=== PATIENT | male | born 1975 | race American Indian/Alaskan Native ===

== ENCOUNTER 2018-05-07 10:22 | Inpatient (IN) | payer OTHER ==
--- NOTE | 2018-05-07 11:03 | C.PDOC ---
History Of Present Illness 43yo male, history of asthma, comes to ER for evaluation of pain and swelling to his left foot. Patient states initially the foot (web space between 3rd and 4th toe) was itchy and after scratching the area, he developed a wound to the site. He now states the pain is worse with walking. Patient was seen by Dr. Hobbs and was informed to come to ER for further evaluation. PMD: None Time Seen by Provider: 05/07/18 10:27 Chief Complaint (Nursing): Lower Extremity Problem/Injury History Per: Patient History/Exam Limitations: no limitations Onset/Duration Of Symptoms: Days (5) Current Symptoms Are (Timing): Still Present Additional History Per: Patient - Knee Description Of Injury: Laceration Past Medical History Reviewed: Historical Data, Nursing Documentation, Vital Signs Vital Signs: Last Vital Signs Temp 99.3 F 05/07/18 10:25 Pulse 81 05/07/18 10:25 Resp 18 05/07/18 10:25 BP 130/81 05/07/18 10:25 Pulse Ox 100 05/07/18 10:25 - Medical History PMH: No Chronic Diseases Surgical History: No Surg Hx Family History: States: No Known Family Hx - Social History Hx Alcohol Use: Yes Hx Substance Use: No - Immunization History Hx Tetanus Toxoid Vaccination: No Hx Influenza Vaccination: No Hx Pneumococcal Vaccination: No Review Of Systems Except As Marked, All Systems Reviewed And Found Negative. Constitutional: Negative for: Fever, Chills Musculoskeletal: Positive for: Foot Pain (left foot pain and swelling; wound to web space between left 3rd and 4th toe.) Physical Exam - Physical Exam Appears: Well, Non-toxic, No Acute Distress Skin: Normal Color, Warm, Dry, No Rash, Other (Left foot small open tender ulcer between 3rd/4th toes with mild yellow oozing, mild surround erythema, edema. NO flactulance.) Head: Normacephalic Eye(s): bilateral: PERRL Nose: No Flaring, No Discharge Oral Mucosa: Moist Throat: No Erythema, No Drooling Neck: Trachea Midline, Supple Cardiovascular: Rhythm Regular Respiratory: No Decreased Breath Sounds, No Accessory Muscle Use, No Stridor, No Wheezing Gastrointestinal/Abdominal: Soft, No Tenderness, No Distention, No Guarding Back: No CVA Tenderness Extremity: Normal ROM, No Deformity, No Swelling Neurological/Psych: Oriented x3, Normal Speech ED Course And Treatment - Laboratory Results Result Diagrams: 05/07/18 11:37 05/07/18 11:37 Lab Interpretation: No Acute Changes O2 Sat by Pulse Oximetry: 100 (RA) Pulse Ox Interpretation: Normal - CT Scan/US Left foot Other Rad Studies (CT/US): Radiology Report Reviewed CT/US Interpretation: (-) acute fx/osteo Progress Note: Podiatry resident paged. Labs and urinalysis ordered. Pt was OBS in ED for 3 hours and reamined stable. Pt was seen by Podiatry resident who discussed cased case with and admission recommend to hospitalist service with scheduled tomorrow OR for I&D. On re-eval, pt is afebrile, hemodynamicaly stable. Non-toxic. left foot: (+) small open wound with mild localized edema, erythema. FAROM, no neurovsacular deficits. Clinc given per podiatry request. Pt agrees with plan. Disposition Counseled Patient/Family Regarding: Studies Performed, Diagnosis, Need For Followup - Disposition Disposition: HOME/ ROUTINE Disposition Time: 13:16 Condition: STABLE Forms: [employer] ([place]ian) - Clinical Impression Clinical Impression: Cellulitis of left foot, Non-healing ulcer of foot - PA / [employer] / Resident Statement MD/DO has reviewed & agrees with the documentation as recorded. - Scribe Statement The provider has reviewed the documentation as recorded by the Bozena Colon Provider Attestation: All medical record entries made by the Radhaibsukhdev were at my direction and personally dictated by me. I have reviewed the chart and agree that the record accurately reflects my personal performance of the history, physical exam, medical decision making, and the department course for this patient. I have also personally directed, reviewed, and agree with the discharge instructions and disposition.
[2018-05-07 11:41] LABS: BASO # 0.1 K/uL (0.0-0.2); EOS # 0.1 K/uL (0.0-0.7); EOS % 2.4 % (0.0-4.0); HEMOGLOBIN 16.7 g/dL (12.0-18.0); LYMPH # 1.5 K/uL (1.0-4.3); LYMPH % 25.5 % (20.0-40.0); MEAN CELL VOLUME 93.5 fL (80.0-94.0); MEAN CORPUSCULAR HEMOGLOBIN 32.6 pg (27.0-31.0); MEAN CORPUSCULAR HGB CONC 34.9 g/dL (33.0-37.0); MEAN PLATELET VOLUME 8.3 fL (7.2-11.7); MONO # 0.6 K/uL (0.0-0.8); MONO % 10.3 % (0.0-10.0); NEUT # 3.6 K/uL (1.8-7.0); NEUT % 60.8 % (50.0-75.0); NRBC % 0.1 % (0.0-2.0); RBC 5.11 Mil/uL (4.40-5.90); WHITE BLOOD COUNT 5.9 K/uL (4.8-10.8)
[2018-05-07 11:55] LABS: BLOOD UREA NITROGEN 11 mg/dL (9-20); CALCIUM 9.2 mg/dl (8.6-10.4); GFR NON-AFRICAN AMERICAN > 60
[2018-05-07 12:25] LABS: INR 1.1; PROTHROMBIN TIME 11.8 SECONDS (9.7-12.2)
[2018-05-07 13:35] LABS: URINE BILIRUBIN NEGATIVE (NEGATIVE); URINE BLOOD NEGATIVE (NEGATIVE); URINE CLARITY Clear (Clear); URINE COLOR Straw (YELLOW); URINE GLUCOSE (UA) NORMAL (Normal); URINE LEUKOCYTE ESTERASE NEG Leu/uL (Negative); URINE PROTEIN NEGATIVE (NEGATIVE); URINE UROBILINOGEN NORMAL mg/dL (0.2-1.0)
--- NOTE | 2018-05-07 14:40 | CP.PCM.CON ---
History of Present Illness - History of Present Illness History of Present Illness: Podiatry Consult Note- Dr. Hobbs 43M with PMH of asthma seen and evaluated in the ED for worsening left foot swelling and pain. Patient reports that he had the increase swelling for over 1 week now. Denies any trauma. Patient reports that he would get itchiness in the bilateral feet often. He reports scratching his feet. Patient thinks the left foot swelling and pain started because of his toes rubbing together and causing friction between the toes as well. Reports pain to the left foot. Reports can not put weight on the floor because of the pain. Patient denies nausea, fever, shortness of breath, chest pains or chills. PMH asthma PSH: denies SH: denies drinking, smoking or illicit drug use ALL: denies MEDS: Albuterol PRN Past Patient History - Past Social History Smoking Status: Never Smoked - PSYCHIATRIC Hx Substance Use: No - SURGICAL HISTORY Hx Surgeries: No Meds Allergies/Adverse Reactions: Allergies Allergy/AdvReac Type Severity Reaction Status Date / Time No Known Allergies Allergy Verified 05/07/18 10:38 Physical Exam - Constitutional Appears: Well, Non-toxic, No Acute Distress - Extremities Exam Extremities exam: Negative for: calf tenderness Additional comments: VASC: DP and PT 2/4 bilaterally, CFT < 3 seconds x 10 digits, temperature gradient warm to warm to LE, increase warmth to the left foot, digit hair present ORTHO: severe pain with palpation to the left lateral forefoot, MM is 5/5 in all four compartments: dorsiflexion, plantarflexion, inversion and eversion NEURO: gross and protective sensation intact DERM: Left foot: 3rd interspace maceration with erythema, swelling, malodor, minimal purulence drainage noted, increase swelling noted to the 4th digit left foot Right foot: 3rd and 4th interspace maceration, no increase erythema or swelling to right foot - Neurological Exam Neurological exam: Alert, Oriented x3 - Psychiatric Exam Psychiatric exam: Normal Affect, Normal Mood Results - Vital Signs Recent Vital Signs: Last Vital Signs Temp 99.3 F 05/07/18 10:25 Pulse 81 05/07/18 10:25 Resp 18 05/07/18 10:25 BP 130/81 05/07/18 10:25 Pulse Ox 100 05/07/18 13:20 - Labs Result Diagrams: 05/07/18 11:37 05/07/18 11:37 Labs: Laboratory Results - last 24 hr 05/07/18 05/07/18 05/07/18 11:37 11:37 11:37 WBC 5.9 RBC 5.11 Hgb 16.7 Hct 47.8 MCV 93.5 MCH 32.6 H MCHC 34.9 RDW 13.0 Plt Count 223 MPV 8.3 Neut % (Auto) 60.8 Lymph % (Auto) 25.5 [place] % (Auto) 10.3 H Eos % (Auto) 2.4 Baso % (Auto) 1.0 Neut # (Auto) 3.6 Lymph # (Auto) 1.5 [place] # (Auto) 0.6 Eos # (Auto) 0.1 Baso # (Auto) 0.1 ESR 45 H PT 11.8 INR 1.1 APTT 33 Sodium 141 Potassium 5.7 H Chloride 101 Carbon Dioxide 29 Anion Gap 17 BUN 11 Creatinine 1.1 Est GFR ( Amer) > 60 Est GFR (Non-Af Amer) > 60 Random Glucose 84 Calcium 9.2 C-Reactive Protein 13.60 H Urine Color Urine Clarity Urine pH Ur Specific [place] Urine Protein Urine Glucose (UA) Urine Ketones Urine Blood Urine Nitrate Urine Bilirubin Urine Urobilinogen Ur Leukocyte Esterase Urine WBC (Auto) Urine RBC (Auto) 05/07/18 13:26 WBC RBC Hgb Hct MCV MCH MCHC RDW Plt Count MPV Neut % (Auto) Lymph % (Auto) [place] % (Auto) Eos % (Auto) Baso % (Auto) Neut # (Auto) Lymph # (Auto) [place] # (Auto) Eos # (Auto) Baso # (Auto) ESR PT INR APTT Sodium Potassium Chloride Carbon Dioxide Anion Gap BUN Creatinine Est GFR ( Amer) Est GFR (Non-Af Amer) Random Glucose Calcium C-Reactive Protein Urine Color Straw Urine Clarity Clear Urine pH 7.0 Ur Specific [place] 1.006 Urine Protein Negative Urine Glucose (UA) Normal Urine Ketones Negative Urine Blood Negative Urine Nitrate Negative Urine Bilirubin Negative Urine Urobilinogen Normal Ur Leukocyte Esterase Neg Urine WBC (Auto) < 1 Urine RBC (Auto) 1 Assessment & Plan - Assessment and Plan (Free Text) Assessment: 43M with asthma with left foot cellulitis, 4th digit swelling with possible OM and possible abscess secondary to macerated 3rd digit interspace Plan: Patient seen and examined Discussed plan with attending Dr. Hobbs Labs, chart, vitals reviewed absent leukocytosis and afebrile X-rays reviewed- no bony erosion, no gas emphysema appreciated (read by me) ESR 45, CRP 13.60 Wound culture taken of left 3rd interspace Dr. Hobbs plans for patient to go to the OR tomorrow for I and D and debridment of all nonviable soft tissue to OR for 12:30 pm pending medical clearance Patient will need a MRI once on floors to r/o OM Patient will need medical clearance. Please provide medical clearance. Thank you Continue IV abx ID recommendations appreciated Will consult ID once on floors Interspaces painted with betadine, and left foot dressed with betadine w2d Patient may WBAT in surgical shoe to the left Podiatry will continue to follow while on floors
--- NOTE | 2018-05-07 14:56 | RAD ---
Date of service: 05/07/2018 PROCEDURE: Left Foot Radiographs. HISTORY: open wound COMPARISON: None. FINDINGS: BONES: Normal. No fracture. JOINTS: Normal. SOFT TISSUES: Plantar hyperdensity projecting over soft tissues proximal phalangeal level-probably relates to known bandage of a wound. No similar hyperdensity per other images available. No smaller more typical foreign body seen OTHER FINDINGS: None. IMPRESSION: Bandaging. No typical foreign body appreciated. No fracture or dislocation.
--- NOTE | 2018-05-07 16:08 | CP.PCM.HP ---
Addendum entered and electronically signed by John Park DO 05/08/18 10:22: Medically cleared for procedure with podiatry Original Note: <John Park - Last Filed: 05/07/18 16:15> History of Present Illness - History of Present Illness History of Present Illness: Hospitalist Service HPI 43M with PMH of asthma seen and evaluated in the ED for worsening left foot swelling and pain. Patient reports that he had the increase swelling for over 1 week now. Denies any trauma. Patient reports that he would get itchiness in the bilateral feet often. He reports scratching his feet and making an abrasion 5 days ago. Reports pain to the left foot. Reports can not put weight on the floor because of the pain. Patient denies nausea, fever, shortness of breath, chest pains. Pt went to the lace cutter yesterday and was told to seek emergency medical attention. He was given a cream and an antibiotic but is unaware what kind. Pt reports chills PMH asthma PSH: denies SH: denies drinking, smoking or illicit drug use ALL: denies MEDS: Albuterol PRN Present on Admission - Present on Admission Any Indicators Present on Admission: No Review of Systems - Review of Systems All systems: reviewed and no additional remarkable complaints except (as per HPI) Past Patient History - Past Social History Smoking Status: Never Smoked - PSYCHIATRIC Hx Substance Use: No - SURGICAL HISTORY Hx Surgeries: No Meds Allergies/Adverse Reactions: Allergies Allergy/AdvReac Type Severity Reaction Status Date / Time No Known Allergies Allergy Verified 05/07/18 10:38 Physical Exam - Constitutional Appears: Well, Non-toxic, No Acute Distress - Head Exam Head Exam: ATRAUMATIC, NORMAL INSPECTION - Eye Exam Eye Exam: EOMI, Normal appearance - ENT Exam ENT Exam: Mucous Membranes Moist, Normal Exam - Respiratory Exam Respiratory Exam: Clear to Auscultation Bilateral - Cardiovascular Exam Cardiovascular Exam: RRR, +S1, +S2 - GI/Abdominal Exam GI & Abdominal Exam: Soft. absent: Tenderness - Extremities Exam Extremities exam: Positive for: pedal pulses present Additional comments: L foot between 3rd and 4th interphalangeal space skin abraision, not bleeding, dressed with betadine and jazmyn red indurated - Back Exam Back exam: NORMAL INSPECTION - Neurological Exam Neurological exam: CN II-XII Intact, Oriented x3 - Psychiatric Exam Psychiatric exam: Normal Affect, Normal Mood Results - Vital Signs Recent Vital Signs: Last Vital Signs Temp 99.4 F 05/07/18 14:39 Pulse 80 05/07/18 14:39 Resp 18 05/07/18 14:39 BP 110/70 05/07/18 14:39 Pulse Ox 100 05/07/18 14:41 - Labs Result Diagrams: 05/07/18 11:37 05/07/18 11:37 Labs: Laboratory Results - last 24 hr 05/07/18 05/07/18 05/07/18 11:37 11:37 11:37 WBC 5.9 RBC 5.11 Hgb 16.7 Hct 47.8 MCV 93.5 MCH 32.6 H MCHC 34.9 RDW 13.0 Plt Count 223 MPV 8.3 Neut % (Auto) 60.8 Lymph % (Auto) 25.5 [place] % (Auto) 10.3 H Eos % (Auto) 2.4 Baso % (Auto) 1.0 Neut # (Auto) 3.6 Lymph # (Auto) 1.5 [place] # (Auto) 0.6 Eos # (Auto) 0.1 Baso # (Auto) 0.1 ESR 45 H PT 11.8 INR 1.1 APTT 33 Sodium 141 Potassium 5.7 H Chloride 101 Carbon Dioxide 29 Anion Gap 17 BUN 11 Creatinine 1.1 Est GFR ( Amer) > 60 Est GFR (Non-Af Amer) > 60 Random Glucose 84 Calcium 9.2 C-Reactive Protein 13.60 H Urine Color Urine Clarity Urine pH Ur Specific [place] Urine Protein Urine Glucose (UA) Urine Ketones Urine Blood Urine Nitrate Urine Bilirubin Urine Urobilinogen Ur Leukocyte Esterase Urine WBC (Auto) Urine RBC (Auto) 05/07/18 13:26 WBC RBC Hgb Hct MCV MCH MCHC RDW Plt Count MPV Neut % (Auto) Lymph % (Auto) [place] % (Auto) Eos % (Auto) Baso % (Auto) Neut # (Auto) Lymph # (Auto) [place] # (Auto) Eos # (Auto) Baso # (Auto) ESR PT INR APTT Sodium Potassium Chloride Carbon Dioxide Anion Gap BUN Creatinine Est GFR ( Amer) Est GFR (Non-Af Amer) Random Glucose Calcium C-Reactive Protein Urine Color Straw Urine Clarity Clear Urine pH 7.0 Ur Specific [place] 1.006 Urine Protein Negative Urine Glucose (UA) Normal Urine Ketones Negative Urine Blood Negative Urine Nitrate Negative Urine Bilirubin Negative Urine Urobilinogen Normal Ur Leukocyte Esterase Neg Urine WBC (Auto) < 1 Urine RBC (Auto) 1 Assessment & Plan - Assessment and Plan (Free Text) Assessment: 43M with asthma with left foot cellulitis, 4th digit swelling with possible OM and possible abscess secondary to macerated 3rd digit interspace Plan: L foot Cellulitis -IV Vanc, Zosyn -Topical Lotrimin -pending blood cultures -pending wound cultures taken of left 3rd interspace -podiatry consulted recs appreciated Dr. Hobbs plans for patient to go to the OR tomorrow for I and D and debridment of all nonviable soft tissue to OR for 12:30 pm pending medical clearance Patient will need a MRI once on floors to r/o OM Patient will need medical clearance. Please provide medical clearance. Thank you -L foot X-rays reviewed- no bony erosion, no gas emphysema appreciated -Afebrile -no leukocytosis Hx of Asthma -Maintain spO2 above 92% -Albuterol rq6 PRN PPX NPO past midnight no anticoag famotidine 20 po <Rosas,Peter H - Last Filed: 05/07/18 17:08> Results - Vital Signs Recent Vital Signs: Last Vital Signs Temp 98.9 F 05/07/18 16:31 Pulse 78 05/07/18 16:31 Resp 18 05/07/18 16:31 BP 98/62 L 05/07/18 16:31 Pulse Ox 100 05/07/18 16:31 - Labs Result Diagrams: 05/07/18 11:37 05/07/18 11:37 Labs: Laboratory Results - last 24 hr 05/07/18 05/07/18 05/07/18 11:37 11:37 11:37 WBC 5.9 RBC 5.11 Hgb 16.7 Hct 47.8 MCV 93.5 MCH 32.6 H MCHC 34.9 RDW 13.0 Plt Count 223 MPV 8.3 Neut % (Auto) 60.8 Lymph % (Auto) 25.5 [place] % (Auto) 10.3 H Eos % (Auto) 2.4 Baso % (Auto) 1.0 Neut # (Auto) 3.6 Lymph # (Auto) 1.5 [place] # (Auto) 0.6 Eos # (Auto) 0.1 Baso # (Auto) 0.1 ESR 45 H PT 11.8 INR 1.1 APTT 33 Sodium 141 Potassium 5.7 H Chloride 101 Carbon Dioxide 29 Anion Gap 17 BUN 11 Creatinine 1.1 Est GFR ( Amer) > 60 Est GFR (Non-Af Amer) > 60 Random Glucose 84 Calcium 9.2 C-Reactive Protein 13.60 H Urine Color Urine Clarity Urine pH Ur Specific [place] Urine Protein Urine Glucose (UA) Urine Ketones Urine Blood Urine Nitrate Urine Bilirubin Urine Urobilinogen Ur Leukocyte Esterase Urine WBC (Auto) Urine RBC (Auto) 05/07/18 13:26 WBC RBC Hgb Hct MCV MCH MCHC RDW Plt Count MPV Neut % (Auto) Lymph % (Auto) [place] % (Auto) Eos % (Auto) Baso % (Auto) Neut # (Auto) Lymph # (Auto) [place] # (Auto) Eos # (Auto) Baso # (Auto) ESR PT INR APTT Sodium Potassium Chloride Carbon Dioxide Anion Gap BUN Creatinine Est GFR ( Amer) Est GFR (Non-Af Amer) Random Glucose Calcium C-Reactive Protein Urine Color Straw Urine Clarity Clear Urine pH 7.0 Ur Specific [place] 1.006 Urine Protein Negative Urine Glucose (UA) Normal Urine Ketones Negative Urine Blood Negative Urine Nitrate Negative Urine Bilirubin Negative Urine Urobilinogen Normal Ur Leukocyte Esterase Neg Urine WBC (Auto) < 1 Urine RBC (Auto) 1 Attending/Attestation - Attestation I have personally seen and examined this patient.: Yes I have fully participated in the care of the patient.: Yes I have reviewed all pertinent clinical information: Yes Notes (Text): 05/07/18 17:03 Medical attending: Patient was seen and examined by me. Agree with the above note by the resident. The patient was not in any acute distress. He was brought in by podiatry due to concerns of wound on the surface web of digits 3 and 4 of the left foot. Besides history of asthma, he does not report any other medical history The patient will be on IV abx at this time, NPO after midnight as well. We will see if we can fit in MRI before the procedure they are trying to do OR tommorow. Patient is able to walk, however it is tender for him when he tries to do so. thank you Donny Rosas
[2018-05-07] MEDS ORDERED: Albuterol-Ipratrop 3 mg / 0.5 (3 ml) UD INH PRN (16:26)
[2018-05-07] MEDS ORDERED: Piperacill/Tazo 3.375gm in Dex 3.375 GM/50 ML BAG IVPB SCH (18:00)
[2018-05-07] MEDS: Clotrimazole 1% Cream(30 gm) TOP SCH (21:05)
[2018-05-07] MEDS: Piperacill/Tazo 3.375gm in Dex 3.375 GM/50 ML BAG IVPB SCH (21:33)
[2018-05-08] MEDS: Piperacill/Tazo 3.375gm in Dex 3.375 GM/50 ML BAG IVPB SCH ×3 (03:34→19:57)
[2018-05-08 07:30] LABS: BASO # 0.1 K/uL (0.0-0.2); BASO % 2.2 % (0.0-2.0); EOS # 0.2 K/uL (0.0-0.7); HEMOGLOBIN 15.5 g/dL (12.0-18.0); LYMPH # 1.3 K/uL (1.0-4.3); LYMPH % 30.5 % (20.0-40.0); MEAN CELL VOLUME 92.6 fL (80.0-94.0); MEAN CORPUSCULAR HEMOGLOBIN 32.3 pg (27.0-31.0); MEAN CORPUSCULAR HGB CONC 34.9 g/dL (33.0-37.0); MEAN PLATELET VOLUME 8.1 fL (7.2-11.7); MONO # 0.5 K/uL (0.0-0.8); MONO % 12.4 % (0.0-10.0); NEUT # 2.2 K/uL (1.8-7.0); NEUT % 49.9 % (50.0-75.0); NRBC % 0.1 % (0.0-2.0); RBC 4.81 Mil/uL (4.40-5.90); RED CELL DISTRIBUTION WIDTH 12.6 % (11.5-14.5); WHITE BLOOD COUNT 4.4 K/uL (4.8-10.8)
[2018-05-08 08:07] LABS: ALBUMIN 4.1 g/dL (3.5-5.0); ALT/SGPT 24 U/L (21-72); AST/SGOT 37 U/L (17-59); BLOOD UREA NITROGEN 18 mg/dL (9-20); CALCIUM 9.1 mg/dl (8.6-10.4); GFR NON-AFRICAN AMERICAN 56
--- NOTE | 2018-05-08 10:05 | CP.PCM.PN ---
Addendum entered and electronically signed by Howard Holly DPM 05/08/18 21:26: - Patient evaluated bedside in recovery s/p left foot incision and drainage of abscess with debridement of all nonviable soft tissue - After surgical procedure patient in NAD - Capillary refill time <3s and NVS intact. - Patient denies complaints at this time. - Post operative instructions and plan of care explained to patient at length. - Patient. acknowledges verbal understanding. - Podiatry will continue to follow patient while in floors -Wound culture taken in the OR. -~5 cc of purulence abscess expressed from lateral forefoot, mainly from 4th digit - Cleansed with copious amounts of hydrogen peroxide, left surgical incision open, packed with idoform, dsd, kerlix, light [id number] -Patient will be WBAT in surgical shoe to the left lower extremity -Pain management per primary, thank you Original Note: Subjective - Date & Time of Evaluation Date of Evaluation: 05/08/18 Time of Evaluation: 10:05 - Subjective Subjective: Podiatry Progress Note- Dr. Hobbs 43M with PMH of asthma with worsening left foot cellulitis. Patient reports nothing to eat or drink since last night. Patient is aware the he will be going to surgery today at 12:30 for incision and drainage of possible abscess and debridement of all nonviable soft tissue. Patient reports he slept okay. Reports the same pain to the left foot, well managed by pain medications. Dressing is clean, dry and intact without strikethrough. Denies nausea, fever, shortness of breath, chest pains or chills. Objective - Vital Signs/Intake and Output Vital Signs (last 24 hours): Temp Pulse Resp BP Pulse Ox 97.8 F 69 20 98/63 L 98 05/08/18 07:56 05/08/18 07:56 05/08/18 07:56 05/08/18 07:56 05/08/18 09:25 Intake and Output: 05/08/18 05/08/18 06:59 18:59 Intake Total 50 Output Total 650 Balance -600 - Medications Medications: Current Medications Albuterol/Ipratropium (Duoneb 3 Mg/0.5 Mg (3 Ml) Ud) 3 ml INH RQ6 PRN PRN Reason: Cough Clotrimazole (Lotrimin 1%) 1 gm TOP BID YOLIE Last Admin: 05/07/18 21:05 Dose: 1 applic Famotidine (Pepcid) 20 mg PO BID YOLIE Last Admin: 05/08/18 09:46 Dose: Not Given Vancomycin HCl 1 gm/ Sodium (Chloride) 250 mls @ 166.7 mls/hr IVPB Q24H YOLIE; Protocol Last Admin: 05/07/18 19:50 Dose: 166.7 mls/hr Piperacillin Sod/Tazobactam Sod (Zosyn 3.375 Gm Iv Premix) 3.375 gm in 50 mls @ 100 mls/hr IVPB Q8H YOLIE; Protocol Last Admin: 05/08/18 03:34 Dose: 100 mls/hr - Labs Labs: 05/08/18 07:10 05/08/18 07:10 PT 11.8 SECONDS (9.7-12.2) 05/07/18 11:37 INR 1.1 05/07/18 11:37 APTT 33 SECONDS (21-34) 05/07/18 11:37 - Constitutional Appears: Well, Non-toxic, No Acute Distress - Extremities Exam Extremities Exam: absent: Calf Tenderness Additional comments: VASC: DP and PT 2/4 bilaterally, CFT < 3 seconds x 10 digits, temperature gradient warm to warm to LE, increase warmth to the left foot, digit hair present ORTHO: severe pain with palpation to the left lateral forefoot, MM is 5/5 in all four compartments: dorsiflexion, plantarflexion, inversion and eversion NEURO: gross and protective sensation intact DERM: Left foot: 3rd interspace severely maceration with erythema, swelling, malodor, minimal purulence drainage noted, increase swelling noted to the 4th digit left foot Right foot: 3rd and 4th interspace maceration, no increase erythema or swelling to right foot - Neurological Exam Neurological Exam: Alert, Awake, Oriented x3 - Psychiatric Exam Psychiatric exam: Normal Affect, Normal Mood Assessment and Plan - Assessment and Plan (Free Text) Assessment: 43M with asthma with left foot cellulitis, 4th digit swelling with possible OM and possible abscess secondary to macerated 3rd digit interspace Plan: Patient seen and examined Discussed plan with attending Dr. Hobbs Labs, chart, vitals reviewed absent leukocytosis and afebrile X-rays reviewed- no bony erosion, no gas emphysema appreciated (read by me) ESR 45, CRP 13.60 Wound culture taken of left 3rd interspace Dr. Hobbs plans for patient to go to the OR tomorrow for I and D and debridment of all nonviable soft tissue to OR for 12:30 pm MRI ordered Continue IV abx ID recommendations appreciated ID consulted- recommendations appreciated. Interspaces painted with hydrogen peroxide , dressed with dsd Patient may WBAT in surgical shoe to the left Podiatry will continue to follow while on floors
[2018-05-08] MEDS: Clotrimazole 1% Cream(30 gm) TOP SCH ×2 (11:45→22:06)
--- NOTE | 2018-05-08 12:36 | CP.PCM.CON ---
History of Present Illness - History of Present Illness History of Present Illness: 43M evaluated in the ED for worsening left foot swelling and pain. Patient reports that he had the increase swelling for over 1 week now. Denies any trauma. He reports scratching his feet. Seen s/p I and D by Dr Hobbs for intertriginous abscess r/o OM PMH asthma PSH: denies SH: denies drinking, smoking or illicit drug use ALL: denies MEDS: Albuterol PRN Review of Systems - Review of Systems All systems: reviewed and no additional remarkable complaints except - Constitutional Constitutional: As Per HPI - EENT Eyes: absent: As Per HPI, Blind Spots, Blurred Vision, Change in Vision, Decreased Night Vision, Diplopia, Discharge, Dry Eye, Exophthalmos, Floaters, Irritation, Itchy Eyes, Loss of Peripheral Vision, Pain, Photophobia, Requires Corrective Lenses, Sees Flashes, Spots in Vision, Tunnel Vision, Other Visual Disturbances, Loss of Vision, Other Ears: absent: As Per HPI, Decreased Hearing, Ear Discharge, Ear Pain, Tinnitus, Abnormal Hearing, Disequilibrium, Dizziness, Other Nose/Mouth/Throat: absent: As Per HPI, Epistaxis, Nasal Congestion, Nasal Discharge, Nasal Obstruction, Nasal Trauma, Nose Pain, Post Nasal Drip, Sinus Pain, Sinus Pressure, Bleeding Gums, Change in Voice, Dental Pain, Dry Mouth, Dysphagia, Halitosis, Hoarsness, Lip Swelling, Mouth Lesions, Mouth Pain, Odynophagia, Sore Throat, Throat Swelling, Tongue Swelling, Facial Pain, Neck Pain, Neck Mass, Other - Cardiovascular Cardiovascular: absent: As Per HPI, Acrocyanosis, Chest Pain, Chest Pain at Rest , Chest Pain with Activity, Claudication, Diaphoresis, Dyspnea, Dyspnea on Exertion, Edema, Irregular Heart Rhythm, Pain Radiating to Arm/Neck/Jaw, Leg Edema, Leg Ulcers, Lightheadedness, Orthopnea, Palpitations, Paroxysmal Nocturnal Dyspnea, Pedal Edema, Radiating Pain, Rapid Heart Rate, Slow Heart Rate, Syncope, Other - Respiratory Respiratory: absent: As Per HPI, Cough, Dyspnea, Hemoptysis, Dyspnea on Exertion, Wheezing, Snoring, Stridor, Pain on Inspiration, Chest Congestion, Excessive Mucous Production, Change in Mucous Color, Pain with Coughing, Other - Gastrointestinal Gastrointestinal: absent: As Per HPI, Abdominal Pain, Belching, Bloating, Change in Bowel Habits, Change in Stool Character, Coffee Ground Emesis, Constipation, Cramping, Diarrhea, Dyspepsia, Dysphagia, Early Satiety, Excessive Flatus, Fecal Incontinence, Heartburn, Hematemesis, Hematochezia, Loose Stools, Melena, Nausea, Odynophagia, Temesmus, Vomiting, Other - Genitourinary Genitourinary: absent: As Per HPI, Change in Urinary Stream, Difficulty Urinating, Dysuria, Flank Pain, Hematuria, Pyuria, Nocturia, Urinary Incontinence, Urinary Frequency, Urinary Hesitance, Urinary Urgency, Voiding Donn q/Small Amts, Freq UTI, Hx Renal/Bladder Calculi, Hx /Renal Surgery, Bladder Distension, Other - Musculoskeletal Musculoskeletal: As Per HPI - Integumentary Integumentary: As Per HPI, Skin Pain, Wounds - Neurological Neurological: absent: As Per HPI, Abnormal Gait, Abnormal Hearing, Abnormal Movements, Abnormal Speech, Behavioral Changes, Burning Sensations, Confusion, Convulsions, Disequilibrium, Dizziness, Numbness, Focal Weakness, Frequent Falls, Headaches, Lack of Coordination, Loss of Vision, Memory Loss, Paresthesias, Radicular Pain, Restless Legs, Sensory Deficit, Syncope, Tingling, Tremor, Vertigo, Weakness, Other Visual Disturbances, Other - Psychiatric Psychiatric: absent: As Per HPI, Abnormal Sleep Pattern, Anhedonia, Anxiety, Auditory Hallucinations, Behavioral Changes, Change in Appetite, Change in Libido, Confusion, Depression, Difficulty Concentrating, Hallucinations, Homicidal Ideation, Hopelessness, Irritability, Memory Loss, Mood Swings, Panic Attacks, Paranoia, Suicidal Ideation, Visual Hallucinations, Tactile Hallucinations, Other - Endocrine Endocrine: absent: As Per HPI, Change in Body Appearance, Change in Libido, Cold Intolorance, Deepening of Voice, Excessive Sweating, Fatigue, Flushing, Heat Intolorance, Increase in Ring/Shoe/Hat Size, Palpitations, Polydipsia, Polyphagia, Polyuria, Other - Hematologic/Lymphatic Hematologic: absent: As Per HPI, Easy Bleeding, Easy Bruising, Lymphadenopathy, Other Past Patient History - Past Social History Smoking Status: Never Smoked - PSYCHIATRIC Hx Substance Use: No - SURGICAL HISTORY Hx Surgeries: No Meds Allergies/Adverse Reactions: Allergies Allergy/AdvReac Type Severity Reaction Status Date / Time No Known Allergies Allergy Verified 05/07/18 10:38 - Medications Medications: Current Medications Albuterol/Ipratropium (Duoneb 3 Mg/0.5 Mg (3 Ml) Ud) 3 ml INH RQ6 PRN PRN Reason: Cough Clotrimazole (Lotrimin 1%) 1 gm TOP BID [facility] Last Admin: 05/08/18 11:45 Dose: Not Given Famotidine (Pepcid) 20 mg PO BID [facility] Last Admin: 05/08/18 09:46 Dose: Not Given Vancomycin HCl 1 gm/ Sodium (Chloride) 250 mls @ 166.7 mls/hr IVPB Q24H [facility]; Protocol Last Admin: 05/07/18 19:50 Dose: 166.7 mls/hr Piperacillin Sod/Tazobactam Sod (Zosyn 3.375 Gm Iv Premix) 3.375 gm in 50 mls @ 100 mls/hr IVPB Q8H [facility]; Protocol Last Admin: 05/08/18 11:42 Dose: 100 mls/hr Physical Exam - Constitutional Appears: Non-toxic, Chronically Ill - Head Exam Head Exam: NORMOCEPHALIC - Eye Exam Eye Exam: absent: Scleral icterus - ENT Exam ENT Exam: Mucous Membranes Dry - Neck Exam Neck exam: Negative for: Lymphadenopathy - Respiratory Exam Respiratory Exam: Decreased Breath Sounds - Cardiovascular Exam Cardiovascular Exam: REGULAR RHYTHM - GI/Abdominal Exam GI & Abdominal Exam: Diminished Bowel Sounds, Soft. absent: Tenderness - Rectal Exam Rectal Exam: Deferred - Exam Exam: NORMAL INSPECTION - Extremities Exam Extremities exam: Positive for: pedal edema Additional comments: dressing in place seen s/p OR - Back Exam Back exam: absent: CVA tenderness (L), CVA tenderness (R) - Neurological Exam Neurological exam: Alert, CN II-XII Intact, Oriented x3, Reflexes Normal - Psychiatric Exam Psychiatric exam: Normal Mood - Skin Skin Exam: Dry Results - Vital Signs Recent Vital Signs: Last Vital Signs Temp 97.8 F 05/08/18 07:56 Pulse 69 05/08/18 07:56 Resp 20 05/08/18 07:56 BP 98/63 L 05/08/18 07:56 Pulse Ox 98 05/08/18 09:25 - Labs Result Diagrams: 05/09/18 06:45 05/09/18 06:45 Labs: Laboratory Results - last 24 hr 05/07/18 05/07/18 05/07/18 11:37 11:37 13:26 WBC RBC Hgb Hct MCV MCH MCHC RDW Plt Count MPV Neut % (Auto) Lymph % (Auto) [place] % (Auto) Eos % (Auto) Baso % (Auto) Neut # (Auto) Lymph # (Auto) [place] # (Auto) Eos # (Auto) Baso # (Auto) ESR 45 H Sodium Potassium Chloride Carbon Dioxide Anion Gap BUN Creatinine Est GFR ( Amer) Est GFR (Non-Af Amer) Random Glucose Calcium Total Bilirubin AST ALT Alkaline Phosphatase C-Reactive Protein 13.60 H Total Protein Albumin Globulin Albumin/Globulin Ratio Urine Color Straw Urine Clarity Clear Urine pH 7.0 Ur Specific [place] 1.006 Urine Protein Negative Urine Glucose (UA) Normal Urine Ketones Negative Urine Blood Negative Urine Nitrate Negative Urine Bilirubin Negative Urine Urobilinogen Normal Ur Leukocyte Esterase Neg Urine WBC (Auto) < 1 Urine RBC (Auto) 1 05/08/18 05/08/18 07:10 07:10 WBC 4.4 L RBC 4.81 Hgb 15.5 Hct 44.5 MCV 92.6 MCH 32.3 H MCHC 34.9 RDW 12.6 Plt Count 207 MPV 8.1 Neut % (Auto) 49.9 L Lymph % (Auto) 30.5 [place] % (Auto) 12.4 H Eos % (Auto) 5.0 H Baso % (Auto) 2.2 H Neut # (Auto) 2.2 Lymph # (Auto) 1.3 [place] # (Auto) 0.5 Eos # (Auto) 0.2 Baso # (Auto) 0.1 ESR Sodium 141 Potassium 4.5 Chloride 103 Carbon Dioxide 29 Anion Gap 13 BUN 18 Creatinine 1.4 Est GFR ( Amer) > 60 Est GFR (Non-Af Amer) 56 Random Glucose 80 Calcium 9.1 Total Bilirubin 0.8 AST 37 ALT 24 Alkaline Phosphatase 84 C-Reactive Protein Total Protein 8.0 Albumin 4.1 Globulin 3.9 Albumin/Globulin Ratio 1.0 Urine Color Urine Clarity Urine pH Ur Specific [place] Urine Protein Urine Glucose (UA) Urine Ketones Urine Blood Urine Nitrate Urine Bilirubin Urine Urobilinogen Ur Leukocyte Esterase Urine WBC (Auto) Urine RBC (Auto) Assessment & Plan (1) Osteomyelitis of left foot Status: Acute (2) Cellulitis of left foot Status: Acute (3) Non-healing ulcer of foot Status: Acute - Assessment and Plan (Free Text) Assessment: will discuss findings with podiatry await OR cultures cont IV antibiotics will review MRI
[2018-05-08] MEDS ORDERED: Lidocaine Hydrochloride 10 ML INJ ONE (13:10)
[2018-05-08] MEDS ORDERED: Bupivacaine HCl 0.5% PF (30 ml) Inj ONE (13:10)
--- NOTE | 2018-05-08 13:20 | MRI ---
MRI left forefoot HISTORY: Nonhealing ulcer. Evaluate for osteomyelitis. Comparison: X-ray dated 05/07/2018 Technique: Multi-echo multiplanar sequences were performed through the left forefoot without the use of intravenous contrast. Findings: Prominent soft tissue ulceration with associated fluid and edema seen within the medial soft tissues at the level of the 4th proximal and middle phalanges. At that level there is heterogeneously increased STIR signal seen within the head and mid shaft of the 4th proximal phalanx as well as the medial base of 4th middle phalanx with associated patchy decreased T1 signal at these levels. These findings are concerning for a developing acute osteomyelitis at these levels. Moderate hallux valgus deformity. Signal abnormality seen within the volar aspect of the middle cuneiform bone suggestive for osteochondral change. Impression: Prominent soft tissue ulceration with associated fluid and edema seen within the medial soft tissues at the level of the 4th proximal and middle phalanges. At that level there is heterogeneously increased STIR signal seen within the head and mid shaft of the 4th proximal phalanx as well as the medial base of 4th middle phalanx with associated patchy decreased T1 signal at these levels. These findings are concerning for a developing acute osteomyelitis at these levels.
[2018-05-08] MEDS ORDERED: Propofol 10 mg/ml Inj (20 ML) ONE (13:23)
--- NOTE | 2018-05-08 13:52 | PCM.SURG1 ---
Surgeon's Initial Post Op Note - Surgeon's Notes Surgeon: Dr. Carl Cementer Helper: Dr. Holly DPM Type of Anesthesia: General Endo, MAC, Local Anesthesia Administered By: Pre-Operative Diagnosis: left foot abscess and cellulitis with possible OM Operative Findings: see dictation; materials: 12'' idoform packing. injectables: 15 cc of 1% lidocaine plain and .5% marcaine plain Post-Operative Diagnosis: same Operation Performed: Left foot incision and drainage of abscess and debridment of all nonviable soft tissue Specimen/Specimens Removed: none; wound culture taken of left foot 3rd interspace Estimated Blood Loss: EBL {In ML}: 5 Blood Products Given: N/A Drains Used: No Drains Post-Op Condition: Good Date of Surgery/Procedure: 05/08/18 Time of Surgery/Procedure: 12:30
[2018-05-08] MEDS ORDERED: HYDROmorphone 0.5 mg/0.5 ml ISec ONE (14:05)
[2018-05-08] MEDS: HYDROmorphone 0.5 mg/0.5 ml ISec IVP PRN (14:05)
--- NOTE | 2018-05-08 14:14 | CP.PCM.PN ---
<Lupe Walker - Last Filed: 05/08/18 14:11> Subjective - Date & Time of Evaluation Date of Evaluation: 05/08/18 Time of Evaluation: 14:11 - Subjective Subjective: Patient seen and examined this morning. On NPO anticipating surgery later in the afternoon. Patient denies pain. Objective - Vital Signs/Intake and Output Vital Signs (last 24 hours): Temp Pulse Resp BP Pulse Ox 97.8 F 69 20 98/63 L 98 05/08/18 07:56 05/08/18 07:56 05/08/18 07:56 05/08/18 07:56 05/08/18 09:25 Intake and Output: 05/08/18 05/08/18 06:59 18:59 Intake Total 50 107.5 Output Total 650 Balance -600 107.5 - Medications Medications: Current Medications Acetaminophen (Tylenol 325mg Tab) 650 mg PO Q6 PRN PRN Reason: Pain, Mild (1-3) Albuterol/Ipratropium (Duoneb 3 Mg/0.5 Mg (3 Ml) Ud) 3 ml INH RQ6 PRN PRN Reason: Cough Clotrimazole (Lotrimin 1%) 1 gm TOP BID [facility] Last Admin: 05/08/18 11:45 Dose: Not Given Famotidine (Pepcid) 20 mg PO BID [facility] Last Admin: 05/08/18 09:46 Dose: Not Given Hydromorphone HCl (Dilaudid) 0.5 mg IVP Q10M PRN PRN Reason: Pain, moderate (4-7) Vancomycin HCl 1 gm/ Sodium (Chloride) 250 mls @ 166.7 mls/hr IVPB Q24H [facility]; Protocol Last Admin: 05/07/18 19:50 Dose: 166.7 mls/hr Piperacillin Sod/Tazobactam Sod (Zosyn 3.375 Gm Iv Premix) 3.375 gm in 50 mls @ 100 mls/hr IVPB Q8H [facility]; Protocol Last Admin: 05/08/18 11:42 Dose: 100 mls/hr Oxycodone/Acetaminophen (Percocet 5/325 Mg Tab) 1 tab PO Q4H PRN PRN Reason: Pain, moderate (4-7) Stop: 05/11/18 13:56 Oxycodone/Acetaminophen (Percocet 5/325 Mg Tab) 2 tab PO Q4H PRN PRN Reason: Pain, severe (8-10) Stop: 05/11/18 13:56 - Labs Labs: 05/08/18 07:10 05/08/18 07:10 PT 11.8 SECONDS (9.7-12.2) 05/07/18 11:37 INR 1.1 05/07/18 11:37 APTT 33 SECONDS (21-34) 05/07/18 11:37 - Constitutional Appears: Well, Non-toxic - Head Exam Head Exam: ATRAUMATIC, NORMAL INSPECTION - Eye Exam Eye Exam: EOMI, Normal appearance - Neck Exam Neck Exam: Normal Inspection - Extremities Exam Additional comments: left foot wrapped in gauze, dressed by nurse immediately before exam. tender to palpation with pressure on 3rd and 4th digits - Neurological Exam Neurological Exam: Alert, Awake, Normal Gait, Oriented x3 - Psychiatric Exam Psychiatric exam: Normal Affect, Normal Mood - Skin Additional comments: unable to view skin due to dressing. Attending physician has already viewed it. Assessment and Plan - Assessment and Plan (Free Text) Assessment: 43 y/o m with PMHx of asthma here for left foot cellulitis, 4th digit swelling with possible osteomyelitis. Patient currently stable on medicine floor. L foot Cellulitis -patient remains afebrile and without leukocytosis -continue with IV Vanc 1g IV daily and zosyn 3.375 g IV q8h -topical Lotrimin -f/u vanc trough -pending blood cultures -pending wound cultures -podiatry recs -Dr. Hobbs plans for OR this afternoon for I and D and debridement. Cleared medically for surgery -MRI 05/08: indicative of development of acute osteomyelitis of 4th middle phalanx -L foot X-rays reviewed- no bony erosion, no gas emphysema appreciated Hx of Asthma -Albuterol q6h PRN -Maintain spO2 above 92%, O2 NC PRN DVT ppx: withheld due to surgery GI ppx: famotidine 20 mg PO Case discussed with Dr. Alison Walker, DO PGY-1 <Donny Rosas - Last Filed: 05/08/18 15:21> Objective - Vital Signs/Intake and Output Vital Signs (last 24 hours): Temp Pulse Resp BP Pulse Ox 98.6 F 66 12 127/86 100 10/31/18 13:50 05/08/18 14:50 05/08/18 14:50 05/08/18 14:50 05/08/18 14:50 Intake and Output: 05/08/18 05/08/18 06:59 18:59 Intake Total 50 107.5 Output Total 650 Balance -600 107.5 - Medications Medications: Current Medications Acetaminophen (Tylenol 325mg Tab) 650 mg PO Q6 PRN PRN Reason: Pain, Mild (1-3) Albuterol/Ipratropium (Duoneb 3 Mg/0.5 Mg (3 Ml) Ud) 3 ml INH RQ6 PRN PRN Reason: Cough Clotrimazole (Lotrimin 1%) 1 gm TOP BID [facility] Last Admin: 05/08/18 11:45 Dose: Not Given Famotidine (Pepcid) 20 mg PO BID [facility] Last Admin: 05/08/18 09:46 Dose: Not Given Hydromorphone HCl (Dilaudid) 0.5 mg IVP Q10M PRN PRN Reason: Pain, moderate (4-7) Last Admin: 05/08/18 14:05 Dose: 0.5 mg Vancomycin HCl 1 gm/ Sodium (Chloride) 250 mls @ 166.7 mls/hr IVPB Q24H [facility]; Protocol Last Admin: 05/07/18 19:50 Dose: 166.7 mls/hr Piperacillin Sod/Tazobactam Sod (Zosyn 3.375 Gm Iv Premix) 3.375 gm in 50 mls @ 100 mls/hr IVPB Q8H [facility]; Protocol Last Admin: 05/08/18 11:42 Dose: 100 mls/hr Influenza Virus Vaccine (Fluzone Quad [id number]) 60 mcg IM .ONCE ONE Stop: 05/10/18 10:01 Oxycodone/Acetaminophen (Percocet 5/325 Mg Tab) 1 tab PO Q4H PRN PRN Reason: Pain, moderate (4-7) Stop: 05/11/18 14:59 Oxycodone/Acetaminophen (Percocet 5/325 Mg Tab) 2 tab PO Q4H PRN PRN Reason: Pain, severe (8-10) Stop: 05/11/18 13:56 Pneumococcal Polyvalent Vaccine (Pneumovax 23 Vaccine) 0.5 ml IM .ONCE ONE Stop: 05/10/18 10:01 Saccharomyces Boulardii (Florastor) 250 mg PO BID [facility]IE - Labs Labs: 05/08/18 07:10 05/08/18 07:10 PT 11.8 SECONDS (9.7-12.2) 05/07/18 11:37 INR 1.1 05/07/18 11:37 APTT 33 SECONDS (21-34) 05/07/18 11:37 Attending/Attestation - Attestation I have personally seen and examined this patient.: Yes I have fully participated in the care of the patient.: Yes I have reviewed all pertinent clinical information, including history, physical exam and plan: Yes Notes (Text): 05/08/18 15:18 Medical attending: Patient was seen and examined by me. Agree with the above note by the hospital medical assistant The patient was not in any acute distress when we came and saw. He was pending going to OR later in the day for intervention in-between the 3rd and 4th digits MRI was later done as well and it suggest acute osteomylitis of that digit noted Donny Rosas
[2018-05-08] MEDS ORDERED: Oxycodone/Acetaminophen 5/325 mg Tab PO PRN (14:58)
[2018-05-08] MEDS: Saccharomyces Boulardi 250 mg Cap PO SCH (17:45)
[2018-05-09] MEDS: Oxycodone/Acetaminophen 5/325 mg Tab PO PRN (00:14)
[2018-05-09 01:06] VITALS: RESP 20
[2018-05-09] MEDS: Piperacill/Tazo 3.375gm in Dex 3.375 GM/50 ML BAG IVPB SCH ×2 (04:14→11:29)
[2018-05-09 06:55] LABS: BASO # 0.1 K/uL (0.0-0.2); BASO % 1.1 % (0.0-2.0); EOS # 0.2 K/uL (0.0-0.7); EOS % 4.7 % (0.0-4.0); HEMOGLOBIN 15.1 g/dL (12.0-18.0); LYMPH # 1.4 K/uL (1.0-4.3); LYMPH % 29.5 % (20.0-40.0); MEAN CELL VOLUME 93.2 fL (80.0-94.0); MEAN CORPUSCULAR HEMOGLOBIN 32.4 pg (27.0-31.0); MEAN CORPUSCULAR HGB CONC 34.8 g/dL (33.0-37.0); MEAN PLATELET VOLUME 8.1 fL (7.2-11.7); MONO # 0.4 K/uL (0.0-0.8); MONO % 9.2 % (0.0-10.0); NEUT # 2.6 K/uL (1.8-7.0); NEUT % 55.5 % (50.0-75.0); RBC 4.68 Mil/uL (4.40-5.90); RED CELL DISTRIBUTION WIDTH 12.6 % (11.5-14.5); WHITE BLOOD COUNT 4.7 K/uL (4.8-10.8)
[2018-05-09] MEDS ORDERED: Vancomycin 1 gm/NS 200 ml 1 GM/200 ML BAG IVPB SCH (07:30)
[2018-05-09 07:55] LABS: ALBUMIN 3.7 g/dL (3.5-5.0); ALT/SGPT 25 U/L (21-72); AST/SGOT 24 U/L (17-59); BLOOD UREA NITROGEN 19 mg/dL (9-20); CALCIUM 8.6 mg/dl (8.6-10.4); GFR NON-AFRICAN AMERICAN > 60
[2018-05-09] MEDS: Saccharomyces Boulardi 250 mg Cap PO SCH ×2 (10:14→17:39)
[2018-05-09] MEDS: Clotrimazole 1% Cream(30 gm) TOP SCH ×2 (10:15→17:40)
[2018-05-09] MEDS ORDERED: Ciprofloxacin 400mg/200ml D5W 400 MG/200 ML BAG IVPB SCH (13:00)
--- NOTE | 2018-05-09 13:32 | CP.PCM.PN ---
Addendum entered and electronically signed by Lupe Walker DO 05/09/18 14:03: Physical exam: General: Well developed, well nourished male in no acute distress conversing in bed HEENT: normocephalic, atraumatic, EOMI Lungs: CTAB, no wheezes, rales CV: RRR, S1, S2 Abdomen: Soft, NTND, no guarding, no rebound tenderness LE: no edema, left foot wrapped in dressing and shoe, peripheral pulses strong without shoe, tissue was non-purulent per podiatry Neuro: AAOx3, gait limited due to pain, unable to stand on left foot Skin: warm, C/D/I other than surgery area Original Note: <Lupe Walker - Last Filed: 05/09/18 13:56> Subjective - Date & Time of Evaluation Date of Evaluation: 05/09/18 Time of Evaluation: 13:25 - Subjective Subjective: Patient s/p left foot cellulitis debridement and is currently POD#1. Patient denies pain in his foot. Patient denies nausea, vomiting, chest pain, shortness of breath, cough, palpitations, muscle aches, abdominal pain. Patient has not had a BM yet after surgery. He has urinated in a cup by his bed. Objective - Vital Signs/Intake and Output Vital Signs (last 24 hours): Temp Pulse Resp BP Pulse Ox 98.2 F 90 20 129/74 99 05/09/18 07:41 05/09/18 07:41 05/09/18 07:41 05/09/18 07:41 05/09/18 07:41 Intake and Output: 05/09/18 05/09/18 06:59 18:59 Intake Total 700 250 Output Total 450 200 Balance 250 50 - Medications Medications: Current Medications Acetaminophen (Tylenol 325mg Tab) 650 mg PO Q6 PRN PRN Reason: Pain, Mild (1-3) Albuterol/Ipratropium (Duoneb 3 Mg/0.5 Mg (3 Ml) Ud) 3 ml INH RQ6 PRN PRN Reason: Cough Clotrimazole (Lotrimin 1%) 1 gm TOP BID [facility] Last Admin: 05/09/18 10:15 Dose: 1 applic Famotidine (Pepcid) 20 mg PO BID [facility] Last Admin: 05/09/18 10:14 Dose: 20 mg Hydromorphone HCl (Dilaudid) 0.5 mg IVP Q10M PRN PRN Reason: Pain, moderate (4-7) Last Admin: 05/08/18 14:05 Dose: 0.5 mg Ciprofloxacin (Cipro 400mg/200ml Dsw) 400 mg in 200 mls @ 133 mls/hr IVPB Q12H [facility]; Protocol Stop: 05/14/18 13:01 Influenza Virus Vaccine (Fluzone Quad [id number]) 60 mcg IM .ONCE ONE Stop: 05/10/18 10:01 Oxycodone/Acetaminophen (Percocet 5/325 Mg Tab) 1 tab PO Q4H PRN PRN Reason: Pain, moderate (4-7) Stop: 05/11/18 14:59 Oxycodone/Acetaminophen (Percocet 5/325 Mg Tab) 2 tab PO Q4H PRN PRN Reason: Pain, severe (8-10) Stop: 05/11/18 13:56 Last Admin: 05/09/18 00:14 Dose: 2 tab Pneumococcal Polyvalent Vaccine (Pneumovax 23 Vaccine) 0.5 ml IM .ONCE ONE Stop: 05/10/18 10:01 Saccharomyces Boulardii (Florastor) 250 mg PO BID [facility] Last Admin: 05/09/18 10:14 Dose: 250 mg - Labs Labs: 05/09/18 06:45 05/09/18 06:45 PT 11.8 SECONDS (9.7-12.2) 05/07/18 11:37 INR 1.1 05/07/18 11:37 APTT 33 SECONDS (21-34) 05/07/18 11:37 Assessment and Plan - Assessment and Plan (Free Text) Assessment: 43 y/o m with PMHx of asthma here for left foot cellulitis, 4th digit swelling with possible osteomyelitis. Patient currently stable on medicine floor. POD#1 s/p debridement. L foot Cellulitis -patient remains afebrile and without leukocytosis -given sensitivities that returned for his 05/07 culture, discontinue IV Vanc 1g IV daily and zosyn 3.375 g IV q8h, discontinue vanc trough -start ciprofloxacin 400 mg IV BID 05/09 -spoke to podiatry Dr. Hobbs in person today. He states he thinks there is no osteomyelitis and that the patient should heal quickly due to healthy tissues and no hx of DM, despite 05/08 MRI results indicating possible osteomyelitis. L foot x-rays without bony erosion or gas -blood cultures negative to date -possible discharge to subacute facility nearby as Dr. Hobbs recommends, to receive IV abx -PT referral ordered; patient still unable to ambulate normally. Pain vs. gradual deconditioning. PT to work with patient and clear patient for discharge. Hx of Asthma -Albuterol q6h PRN -Maintain spO2 above 92%, O2 NC PRN DVT ppx: per podiatry, not recommended GI ppx: famotidine 20 mg PO Case discussed with Dr. Alison Walker, DO PGY-1 <Donny Rosas H - Last Filed: 05/09/18 14:29> Objective - Vital Signs/Intake and Output Vital Signs (last 24 hours): Temp Pulse Resp BP Pulse Ox 98.2 F 90 20 129/74 99 05/09/18 07:41 05/09/18 07:41 05/09/18 07:41 05/09/18 07:41 05/09/18 07:41 Intake and Output: 05/09/18 05/09/18 06:59 18:59 Intake Total 700 250 Output Total 450 200 Balance 250 50 - Medications Medications: Current Medications Acetaminophen (Tylenol 325mg Tab) 650 mg PO Q6 PRN PRN Reason: Pain, Mild (1-3) Albuterol/Ipratropium (Duoneb 3 Mg/0.5 Mg (3 Ml) Ud) 3 ml INH RQ6 PRN PRN Reason: Cough Clotrimazole (Lotrimin 1%) 1 gm TOP BID [facility] Last Admin: 05/09/18 10:15 Dose: 1 applic Famotidine (Pepcid) 20 mg PO BID [facility] Last Admin: 05/09/18 10:14 Dose: 20 mg Hydromorphone HCl (Dilaudid) 0.5 mg IVP Q10M PRN PRN Reason: Pain, moderate (4-7) Last Admin: 05/08/18 14:05 Dose: 0.5 mg Ciprofloxacin (Cipro 400mg/200ml Dsw) 400 mg in 200 mls @ 133 mls/hr IVPB Q12H [facility]; Protocol Stop: 05/14/18 13:01 Last Admin: 05/09/18 14:02 Dose: 133 mls/hr Influenza Virus Vaccine (Fluzone Quad [id number]) 60 mcg IM .ONCE ONE Stop: 05/10/18 10:01 Oxycodone/Acetaminophen (Percocet 5/325 Mg Tab) 1 tab PO Q4H PRN PRN Reason: Pain, moderate (4-7) Stop: 05/11/18 14:59 Oxycodone/Acetaminophen (Percocet 5/325 Mg Tab) 2 tab PO Q4H PRN PRN Reason: Pain, severe (8-10) Stop: 05/11/18 13:56 Last Admin: 05/09/18 00:14 Dose: 2 tab Pneumococcal Polyvalent Vaccine (Pneumovax 23 Vaccine) 0.5 ml IM .ONCE ONE Stop: 05/10/18 10:01 Saccharomyces Boulardii (Florastor) 250 mg PO BID [facility] Last Admin: 05/09/18 10:14 Dose: 250 mg - Labs Labs: 05/09/18 06:45 05/09/18 06:45 PT 11.8 SECONDS (9.7-12.2) 05/07/18 11:37 INR 1.1 05/07/18 11:37 APTT 33 SECONDS (21-34) 05/07/18 11:37 Attending/Attestation - Attestation I have personally seen and examined this patient.: Yes I have fully participated in the care of the patient.: Yes I have reviewed all pertinent clinical information, including history, physical exam and plan: Yes Notes (Text): 05/09/18 14:27 Medical attending: Patient was seen and examined by me. Agree with the above note by the resident The patient was not in any acute distress - he is status post OR yesterday for ID of the area bewtween the 3rd and 4th toe. The patient also underwent MRI as well which suggested osteopmylitis of that ar ea. Pending infectious disease evaluation Donny Rosas
--- NOTE | 2018-05-09 14:22 | CP.PCM.PN ---
Subjective - Date & Time of Evaluation Date of Evaluation: 05/09/18 Time of Evaluation: 11:15 - Subjective Subjective: Podiatry Progress Note- Dr. Carl Patient 1 day s/p left foot incision and drainage of abscess with cellulilitis. Patient is seen resting comfortably in bed, in NAD, enjoying lunch. Patient denies of pain at the moment. Patient reports pain is managed by pain medication. Patient denies nausea, fever, shortness of breath, chest pains or chills. Objective - Vital Signs/Intake and Output Vital Signs (last 24 hours): Temp Pulse Resp BP Pulse Ox 98.2 F 90 20 129/74 99 05/09/18 07:41 05/09/18 07:41 05/09/18 07:41 05/09/18 07:41 05/09/18 07:41 Intake and Output: 05/09/18 05/09/18 06:59 18:59 Intake Total 700 250 Output Total 450 200 Balance 250 50 - Medications Medications: Current Medications Acetaminophen (Tylenol 325mg Tab) 650 mg PO Q6 PRN PRN Reason: Pain, Mild (1-3) Albuterol/Ipratropium (Duoneb 3 Mg/0.5 Mg (3 Ml) Ud) 3 ml INH RQ6 PRN PRN Reason: Cough Clotrimazole (Lotrimin 1%) 1 gm TOP BID [facility] Last Admin: 05/09/18 10:15 Dose: 1 applic Famotidine (Pepcid) 20 mg PO BID [facility] Last Admin: 05/09/18 10:14 Dose: 20 mg Hydromorphone HCl (Dilaudid) 0.5 mg IVP Q10M PRN PRN Reason: Pain, moderate (4-7) Last Admin: 05/08/18 14:05 Dose: 0.5 mg Ciprofloxacin (Cipro 400mg/200ml Dsw) 400 mg in 200 mls @ 133 mls/hr IVPB Q12H [facility]; Protocol Stop: 05/14/18 13:01 Last Admin: 05/09/18 14:02 Dose: 133 mls/hr Influenza Virus Vaccine (Fluzone Quad [id number]) 60 mcg IM .ONCE ONE Stop: 05/10/18 10:01 Oxycodone/Acetaminophen (Percocet 5/325 Mg Tab) 1 tab PO Q4H PRN PRN Reason: Pain, moderate (4-7) Stop: 05/11/18 14:59 Oxycodone/Acetaminophen (Percocet 5/325 Mg Tab) 2 tab PO Q4H PRN PRN Reason: Pain, severe (8-10) Stop: 05/11/18 13:56 Last Admin: 05/09/18 00:14 Dose: 2 tab Pneumococcal Polyvalent Vaccine (Pneumovax 23 Vaccine) 0.5 ml IM .ONCE ONE Stop: 05/10/18 10:01 Saccharomyces Boulardii (Florastor) 250 mg PO BID [facility] Last Admin: 05/09/18 10:14 Dose: 250 mg - Labs Labs: 05/09/18 06:45 05/09/18 06:45 PT 11.8 SECONDS (9.7-12.2) 05/07/18 11:37 INR 1.1 05/07/18 11:37 APTT 33 SECONDS (21-34) 05/07/18 11:37 - Constitutional Appears: Well, Non-toxic, No Acute Distress - Extremities Exam Extremities Exam: absent: Calf Tenderness Additional comments: VASC: DP and PT 2/4 bilaterally, CFT < 3 seconds x 10 digits, temperature gradient warm to warm to LE, warmth to the left digit hair present ORTHO: moderate pain with palpation to the left lateral forefoot, MM is 5/5 in all four compartments: dorsiflexion, plantarflexion, inversion and eversion NEURO: gross and protective sensation intact DERM: Left foot: surgical incision measuring approximately 3 cm in length on the dorsum lateral aspect of the left foot remains opened, wound base is mixture of granular and fibrotic tissue. Right foot: 3rd and 4th interspace maceration, no increase erythema or swelling to right foot - Neurological Exam Neurological Exam: Alert, Awake - Psychiatric Exam Psychiatric exam: Normal Affect, Normal Mood Assessment and Plan - Assessment and Plan (Free Text) Assessment: 43M with asthma with left foot cellulitis with left 4th digit OM, 1 day s/p incision and drainage with debridement of all nonviable soft tissue Plan: Patient seen and examined Discussed plan with attending Dr. Carl X-rays reviewed- no bony erosion, no gas emphysema appreciated Labs, chart, vitals reviewed absent leukocytosis and afebrile MRI Impression: Prominent soft tissue ulceration with associated fluid and edema seen within the medial soft tissues at the level of the 4th proximal and middle phalanges. At that level there is heterogeneously increased STIR signal seen within the head and mid shaft of the 4th proximal phalanx as well as the medial base of 4th middle phalanx with associated patchy decreased T1 signal at these levels. These findings are concerning for a developing acute osteomyelitis at these levels. Cleansed with copious amounts of hydrogen peroxide, left surgical incision open, packed with idoform, dsd, kerlix, light IGNACIO ESR 45 --> 21 CRP 13.60 Wound culture taken of left 3rd interspace (05/07/18) Proteus Mirabilis, Staphylococcus Aureus Wound culture in OR 4th digit - Gram positive Cocci (preliminary) Continue IV abx ID recommendations appreciated ID consulted- recommendations appreciated. Interspaces painted with hydrogen peroxide , dressed with dsd Patient may WBAT in surgical shoe to the left Pain medication per primary Podiatry will continue to follow while on floors
--- NOTE | 2018-05-09 17:46 | PCM.OP ---
Operative Report - Operative Report Date of Surgery/Procedure: 05/08/18 Time of Surgery/Procedure: 12:30 Surgeon: Dr. Carl Biomedical Field Service Engineer: Dr. Holly Anesthesia/Sedation: IV sedation and local Pre-Operative Diagnosis: left foot abscess and cellulitis with possible OM Post-Operative Diagnosis: left foot abscess and cellulitis with possible OM Indication for Surgery: The patient is a 43 year old male with the above diagnosis. Patient presents with 1 week increase swelling, pain, and warmth to the left foot, at the 3rd and 4th digit, with cellulitis and severely 3rd interspace maceration. Malodor and erythema present.The patient has exhausted all conservative treatment at this time and now requests surgical intervention. The patient signed the consent after careful explanation of risks, benefits, complication and alternatives for surgical procedure. No guarantees were given nor implied. NPO status confirmed prior to taking patient to the OR. Operative Findings: see dictation Procedure/Operation Description: The patient was brought into the operating room and placed on the operating room table in a supine position. A timeout was performed for identification of the correct patient and procedure. The patient received a total of 15 mL of a 1:1 mixture of 1% lidocaine plain and 0.5% marcaine plain in a local block fashion to the left foot. Once local anesthesia was achieved, the left foot was then prepped and draped in normal sterile manner and the procedure began. No tourniquet was used during the procedure.Attention was directed to the patient's left foot in which a linear longitudinal incision approximately 3cm in length was made on the dorsum of the lateral foot starting at the dorsum 3rd interspace extending to metatarsal head. The incision was deepened through subcutaneous tissue using #15 blade. During this time wound culture was taken and sent to pathology for evaluation. Using blunt dissection surrounding soft tissue was freed and during this time about 5 cc of purulence drainage was expressed from the 4th digit and surrounding sites. Next, utilizing a pickup and blade #15, nonviable soft tissue was removed from the 3rd interspace and medial aspect of the 4th digit until healthier soft tissue appeared.The surgical incision and 3rd interspace was flushed with copious amounts of hydrogen peroxide. Surgical site was left open where iodoform packing was packing. Surgical site was dressed with dsd, sterile gauze, ABD, and kerlix with light IGNACIO Estimated Blood Loss: 5 Complications: none Specimen: none, wound culture taken left foot Discharge & Condition: The patient tolerated the local anesthesia and procedure well and was escorted to the recovery room with neurovascular status intact to the left foot. Patient will remain in house and podiatry will continue to follow.
--- NOTE | 2018-05-09 19:21 | CP.PCM.PN ---
Subjective - Date & Time of Evaluation Date of Evaluation: 05/09/18 Time of Evaluation: 08:00 - Subjective Subjective: discussed on rounds with podiatry [facility] and Dr Hobbs pt is s/p I and D of abscess Left foot which originated in intertriginous space likely from superficial fungal infection MRI also reviewed MRI Impression: Prominent soft tissue ulceration with associated fluid and edema seen within the medial soft tissues at the level of the 4th proximal and middle phalanges. At that level there is heterogeneously increased STIR signal seen within the head and mid shaft of the 4th proximal phalanx as well as the medial base of 4th middle phalanx with associated patchy decreased T1 signal at these levels. These findings are concerning for a developing acute osteomyelitis at these levels. In view of the above and after discussion with podiatry, would recommend treatment for OM will likely need PICC and wiring technician rx Cipro is not a reliable agent for MSSA in deep seated infection since resistance can occur while on rx Consider switch to Ancef 2 g IV q8 h or other suitable agent Objective - Vital Signs/Intake and Output Vital Signs (last 24 hours): Temp Pulse Resp BP Pulse Ox 98.8 F 82 20 112/74 98 05/09/18 16:00 05/09/18 16:00 05/09/18 16:00 05/09/18 16:00 05/09/18 16:00 Intake and Output: 05/09/18 05/10/18 18:59 06:59 Intake Total 250 Output Total 200 Balance 50 - Medications Medications: Current Medications Acetaminophen (Tylenol 325mg Tab) 650 mg PO Q6 PRN PRN Reason: Pain, Mild (1-3) Albuterol/Ipratropium (Duoneb 3 Mg/0.5 Mg (3 Ml) Ud) 3 ml INH RQ6 PRN PRN Reason: Cough Clotrimazole (Lotrimin 1%) 1 gm TOP BID [facility] Last Admin: 05/09/18 17:40 Dose: Not Given Famotidine (Pepcid) 20 mg PO BID [facility] Last Admin: 05/09/18 17:39 Dose: 20 mg Hydromorphone HCl (Dilaudid) 0.5 mg IVP Q10M PRN PRN Reason: Pain, moderate (4-7) Last Admin: 05/08/18 14:05 Dose: 0.5 mg Ciprofloxacin (Cipro 400mg/200ml Dsw) 400 mg in 200 mls @ 133 mls/hr IVPB Q12H [facility]; Protocol Stop: 05/14/18 13:01 Last Admin: 05/09/18 14:02 Dose: 133 mls/hr Influenza Virus Vaccine (Fluzone Quad [id number]) 60 mcg IM .ONCE ONE Stop: 05/10/18 10:01 Oxycodone/Acetaminophen (Percocet 5/325 Mg Tab) 1 tab PO Q4H PRN PRN Reason: Pain, moderate (4-7) Stop: 05/11/18 14:59 Oxycodone/Acetaminophen (Percocet 5/325 Mg Tab) 2 tab PO Q4H PRN PRN Reason: Pain, severe (8-10) Stop: 05/11/18 13:56 Last Admin: 05/09/18 00:14 Dose: 2 tab Pneumococcal Polyvalent Vaccine (Pneumovax 23 Vaccine) 0.5 ml IM .ONCE ONE Stop: 05/10/18 10:01 Saccharomyces Boulardii (Florastor) 250 mg PO BID [facility] Last Admin: 05/09/18 17:39 Dose: 250 mg - Labs Labs: 05/09/18 06:45 05/09/18 06:45 PT 11.8 SECONDS (9.7-12.2) 05/07/18 11:37 INR 1.1 05/07/18 11:37 APTT 33 SECONDS (21-34) 05/07/18 11:37 Assessment and Plan (1) Osteomyelitis of left foot Status: Acute (2) Cellulitis of left foot Status: Acute (3) Non-healing ulcer of foot Status: Acute
[2018-05-09] MEDS: Meropenem 1 GM in Sodium Chloride 0.9% 100 ML IVPB SCH (20:58)
[2018-05-10] MEDS: Meropenem 1 GM in Sodium Chloride 0.9% 100 ML IVPB SCH ×3 (04:40→20:00)
[2018-05-10 06:30] LABS: BASO # 0.1 K/uL (0.0-0.2); EOS # 0.2 K/uL (0.0-0.7); EOS % 6.5 % (0.0-4.0); HEMOGLOBIN 15.5 g/dL (12.0-18.0); LYMPH % 36.1 % (20.0-40.0); MEAN CELL VOLUME 92.3 fL (80.0-94.0); MEAN CORPUSCULAR HEMOGLOBIN 32.5 pg (27.0-31.0); MEAN CORPUSCULAR HGB CONC 35.3 g/dL (33.0-37.0); MEAN PLATELET VOLUME 7.9 fL (7.2-11.7); MONO # 0.3 K/uL (0.0-0.8); MONO % 11.1 % (0.0-10.0); NEUT # 1.2 K/uL (1.8-7.0); NEUT % 43.3 % (50.0-75.0); NRBC % 0.1 % (0.0-2.0); RBC 4.77 Mil/uL (4.40-5.90); RED CELL DISTRIBUTION WIDTH 12.7 % (11.5-14.5); WHITE BLOOD COUNT 2.7 K/uL (4.8-10.8)
[2018-05-10 06:42] LABS: ALBUMIN 4.1 g/dL (3.5-5.0); ALT/SGPT 26 U/L (21-72); AST/SGOT 30 U/L (17-59); BLOOD UREA NITROGEN 17 mg/dL (9-20); CALCIUM 8.8 mg/dl (8.6-10.4); GFR NON-AFRICAN AMERICAN > 60
[2018-05-10] MEDS ORDERED: Influenza Vaccine 60 MCG/0.5 ML SYR (3 yr & up) IM ONE (10:00)
[2018-05-10] MEDS ORDERED: Pneumococcal 23-Valent Vaccine IM ONE (10:00)
[2018-05-10] MEDS: Saccharomyces Boulardi 250 mg Cap PO SCH ×2 (10:12→17:58)
[2018-05-10] MEDS: Clotrimazole 1% Cream(30 gm) TOP SCH ×2 (11:07→18:05)
--- NOTE | 2018-05-10 18:00 | CP.PCM.PN ---
Subjective - Date & Time of Evaluation Date of Evaluation: 05/10/18 Time of Evaluation: 17:57 - Subjective Subjective: Medicine Dr. Woodruff's service Patient seen and examined at bedside this morning. He continues to deny pain in his left foot. He denies chest pain, SOB, nausea, vomiting, diarrhea, palpitations, wheezing, cough, dysuria. It still hurts to apply pressure on the foot when walking. Patient also had a BM this morning. Objective - Vital Signs/Intake and Output Vital Signs (last 24 hours): Temp Pulse Resp BP Pulse Ox 98.7 F 71 20 125/64 97 05/10/18 16:00 05/10/18 16:00 05/10/18 16:00 05/10/18 16:00 05/10/18 16:00 Intake and Output: 05/10/18 05/10/18 06:59 18:59 Intake Total 850 Balance 850 - Medications Medications: Current Medications Acetaminophen (Tylenol 325mg Tab) 650 mg PO Q6 PRN PRN Reason: Pain, Mild (1-3) Albuterol/Ipratropium (Duoneb 3 Mg/0.5 Mg (3 Ml) Ud) 3 ml INH RQ6 PRN PRN Reason: Cough Clotrimazole (Lotrimin 1%) 1 gm TOP BID [facility] Last Admin: 05/10/18 11:07 Dose: 1 applic Famotidine (Pepcid) 20 mg PO BID [facility] Last Admin: 05/10/18 10:12 Dose: 20 mg Hydromorphone HCl (Dilaudid) 0.5 mg IVP Q10M PRN PRN Reason: Pain, moderate (4-7) Last Admin: 05/08/18 14:05 Dose: 0.5 mg Meropenem 1 gm/ Sodium (Chloride) 100 mls @ 100 mls/hr IVPB Q8H [facility]; Protocol Last Admin: 05/10/18 11:03 Dose: 100 mls/hr Oxycodone/Acetaminophen (Percocet 5/325 Mg Tab) 1 tab PO Q4H PRN PRN Reason: Pain, moderate (4-7) Stop: 05/11/18 14:59 Oxycodone/Acetaminophen (Percocet 5/325 Mg Tab) 2 tab PO Q4H PRN PRN Reason: Pain, severe (8-10) Stop: 05/11/18 13:56 Last Admin: 05/09/18 00:14 Dose: 2 tab Saccharomyces Boulardii (Florastor) 250 mg PO BID [facility] Last Admin: 05/10/18 10:12 Dose: 250 mg - Labs Labs: 05/10/18 06:18 05/10/18 06:18 PT 11.8 SECONDS (9.7-12.2) 05/07/18 11:37 INR 1.1 05/07/18 11:37 APTT 33 SECONDS (21-34) 05/07/18 11:37 - Constitutional Appears: Well - Head Exam Head Exam: ATRAUMATIC, NORMAL INSPECTION, NORMOCEPHALIC - Eye Exam Eye Exam: EOMI, Normal appearance - ENT Exam ENT Exam: Mucous Membranes Moist, Normal Exam - Neck Exam Neck Exam: Normal Inspection - Respiratory Exam Respiratory Exam: Clear to Ausculation Bilateral, NORMAL BREATHING PATTERN - GI/Abdominal Exam GI & Abdominal Exam: Soft, Normal Bowel Sounds - Extremities Exam Extremities Exam: Normal Capillary Refill Additional comments: Left foot wrapped in bandage and has a velcro post op shoe on peripheral pulses strong - Back Exam Back Exam: NORMAL INSPECTION - Neurological Exam Neurological Exam: Alert, Awake, Oriented x3. absent: Normal Gait - Psychiatric Exam Psychiatric exam: Normal Affect - Skin Skin Exam: Dry, Intact, Normal Color, Warm Assessment and Plan - Assessment and Plan (Free Text) Assessment: 43 y/o m with PMHx of asthma here for left foot cellulitis, 4th digit swelling with possible osteomyelitis. Patient currently stable on medicine floor. POD#2 s/p debridement. L foot Cellulitis -patient remains afebrile and without leukocytosis -given sensitivities that returned for his 05/07 culture, discontinued IV Vanc 1g IV daily and zosyn 3.375 g IV q8h, discontinue vanc trough -started ciprofloxacin 400 mg IV BID 05/09, discontinued that evening per Dr. Jackson's recs. -merrem 1g q8h started 4:40am on 05/[address] Jackson's orders. Spoke to him last night. He said it is safer to put on merrem in the event of OM -Dr. Jackson recommends IV abx x 6 weeks -blood cultures negative to date -possible discharge to subacute facility nearby as Dr. Hobbs recommends, to receive IV abx -PICC line placement pending; ordered for IR for the weekend. If not, f/u on Sunday -PT referral ordered; patient still unable to ambulate normally. Pain vs. gradual deconditioning. PT to work with patient and clear patient for discharge. Hx of Asthma -Albuterol q6h PRN -Maintain spO2 above 92%, O2 NC PRN DVT ppx: per podiatry, not recommended GI ppx: famotidine 20 mg PO Case discussed with Dr. Ranjan Walker, DO PGY-1
--- NOTE | 2018-05-10 19:23 | CP.PCM.PN ---
Subjective - Date & Time of Evaluation Date of Evaluation: 05/10/18 Time of Evaluation: 07:00 - Subjective Subjective: EVENTS NOTED IV RX IN PROGRESS PER DR TOBIAS Objective - Vital Signs/Intake and Output Vital Signs (last 24 hours): Temp Pulse Resp BP Pulse Ox 98.7 F 71 20 125/64 97 05/10/18 16:00 05/10/18 16:00 05/10/18 16:00 05/10/18 16:00 05/10/18 16:00 - Medications Medications: Current Medications Acetaminophen (Tylenol 325mg Tab) 650 mg PO Q6 PRN PRN Reason: Pain, Mild (1-3) Albuterol/Ipratropium (Duoneb 3 Mg/0.5 Mg (3 Ml) Ud) 3 ml INH RQ6 PRN PRN Reason: Cough Clotrimazole (Lotrimin 1%) 1 gm TOP BID [facility] Last Admin: 05/10/18 18:05 Dose: Not Given Famotidine (Pepcid) 20 mg PO BID [facility] Last Admin: 05/10/18 17:57 Dose: 20 mg Hydromorphone HCl (Dilaudid) 0.5 mg IVP Q10M PRN PRN Reason: Pain, moderate (4-7) Last Admin: 05/08/18 14:05 Dose: 0.5 mg Meropenem 1 gm/ Sodium (Chloride) 100 mls @ 100 mls/hr IVPB Q8H [facility]; Protocol Last Admin: 05/10/18 11:03 Dose: 100 mls/hr Oxycodone/Acetaminophen (Percocet 5/325 Mg Tab) 1 tab PO Q4H PRN PRN Reason: Pain, moderate (4-7) Stop: 05/11/18 14:59 Oxycodone/Acetaminophen (Percocet 5/325 Mg Tab) 2 tab PO Q4H PRN PRN Reason: Pain, severe (8-10) Stop: 05/11/18 13:56 Last Admin: 05/09/18 00:14 Dose: 2 tab Saccharomyces Boulardii (Florastor) 250 mg PO BID [facility] Last Admin: 05/10/18 17:58 Dose: 250 mg - Labs Labs: 05/10/18 06:18 05/10/18 06:18 PT 11.8 SECONDS (9.7-12.2) 05/07/18 11:37 INR 1.1 05/07/18 11:37 APTT 33 SECONDS (21-34) 05/07/18 11:37 - Constitutional Appears: Well - Head Exam Head Exam: ATRAUMATIC, NORMAL INSPECTION, NORMOCEPHALIC - Eye Exam Eye Exam: EOMI, Normal appearance, PERRL Pupil Exam: NORMAL ACCOMODATION, PERRL - ENT Exam ENT Exam: Mucous Membranes Moist, Normal Exam - Neck Exam Neck Exam: Full ROM, Normal Inspection. absent: Lymphadenopathy - Respiratory Exam Respiratory Exam: Clear to Ausculation Bilateral, NORMAL BREATHING PATTERN - Cardiovascular Exam Cardiovascular Exam: REGULAR RHYTHM, +S1, +S2. absent: Murmur - GI/Abdominal Exam GI & Abdominal Exam: Soft, Normal Bowel Sounds. absent: Tenderness - Rectal Exam Rectal Exam: NORMAL INSPECTION - Extremities Exam Extremities Exam: Full ROM, Normal Capillary Refill, Normal Inspection. absent: Joint Swelling, Pedal Edema - Back Exam Back Exam: NORMAL INSPECTION - Neurological Exam Neurological Exam: Alert, Awake, CN II-XII Intact, Normal Gait, Oriented x3 - Psychiatric Exam Psychiatric exam: Normal Affect, Normal Mood - Skin Skin Exam: Dry, Intact, Normal Color, Warm Assessment and Plan (1) Osteomyelitis of left foot Status: Acute (2) Cellulitis of left foot Status: Acute (3) Non-healing ulcer of foot Status: Acute
[2018-05-11] MEDS: Meropenem 1 GM in Sodium Chloride 0.9% 100 ML IVPB SCH ×3 (04:45→21:15)
[2018-05-11 08:01] LABS: BASO # 0.1 K/uL (0.0-0.2); BASO % 1.6 % (0.0-2.0); EOS # 0.2 K/uL (0.0-0.7); EOS % 5.9 % (0.0-4.0); HEMOGLOBIN 15.5 g/dL (12.0-18.0); LYMPH # 1.6 K/uL (1.0-4.3); MEAN CELL VOLUME 92.9 fL (80.0-94.0); MEAN CORPUSCULAR HEMOGLOBIN 32.4 pg (27.0-31.0); MEAN CORPUSCULAR HGB CONC 34.8 g/dL (33.0-37.0); MEAN PLATELET VOLUME 8.1 fL (7.2-11.7); MONO # 0.4 K/uL (0.0-0.8); MONO % 10.2 % (0.0-10.0); NEUT # 1.7 K/uL (1.8-7.0); NEUT % 43.3 % (50.0-75.0); NRBC % 0.2 % (0.0-2.0); RBC 4.8 Mil/uL (4.40-5.90); RED CELL DISTRIBUTION WIDTH 12.7 % (11.5-14.5)
[2018-05-11 08:17] LABS: ALBUMIN 3.9 g/dL (3.5-5.0); ALT/SGPT 22 U/L (21-72); AST/SGOT 29 U/L (17-59); BLOOD UREA NITROGEN 15 mg/dL (9-20); GFR NON-AFRICAN AMERICAN > 60
[2018-05-11] MEDS: Saccharomyces Boulardi 250 mg Cap PO SCH ×2 (10:01→17:49)
[2018-05-11] MEDS: Clotrimazole 1% Cream(30 gm) TOP SCH ×2 (10:08→17:50)
[2018-05-11] MEDS: Oxycodone/Acetaminophen 5/325 mg Tab PO PRN (11:06)
--- NOTE | 2018-05-11 12:57 | CP.PCM.PN ---
<Oni Ferreira - Last Filed: 05/11/18 13:00> Subjective - Date & Time of Evaluation Date of Evaluation: 05/11/18 Time of Evaluation: 12:55 - Subjective Subjective: Progress note. Attending: Dr. Veloz Pt seen and examined at bedside. No acute distress. No events overnight. No fevers, chills, vomiting, diarrhea. Objective - Vital Signs/Intake and Output Vital Signs (last 24 hours): Temp Pulse Resp BP Pulse Ox 97.6 F 78 20 127/84 96 05/11/18 08:17 05/11/18 08:17 05/11/18 08:17 05/11/18 08:17 05/11/18 08:17 Intake and Output: 05/11/18 05/11/18 06:59 18:59 Intake Total 850 Output Total 1000 Balance -150 - Medications Medications: Current Medications Acetaminophen (Tylenol 325mg Tab) 650 mg PO Q6 PRN PRN Reason: Pain, Mild (1-3) Albuterol/Ipratropium (Duoneb 3 Mg/0.5 Mg (3 Ml) Ud) 3 ml INH RQ6 PRN PRN Reason: Cough Clotrimazole (Lotrimin 1%) 1 gm TOP BID [facility] Last Admin: 05/11/18 10:08 Dose: 1 applic Famotidine (Pepcid) 20 mg PO BID [facility] Last Admin: 05/11/18 10:01 Dose: 20 mg Hydromorphone HCl (Dilaudid) 0.5 mg IVP Q10M PRN PRN Reason: Pain, moderate (4-7) Last Admin: 05/08/18 14:05 Dose: 0.5 mg Meropenem 1 gm/ Sodium (Chloride) 100 mls @ 100 mls/hr IVPB Q8H [facility]; Protocol Last Admin: 05/11/18 12:27 Dose: 100 mls/hr Oxycodone/Acetaminophen (Percocet 5/325 Mg Tab) 1 tab PO Q4H PRN PRN Reason: Pain, moderate (4-7) Stop: 05/11/18 14:59 Oxycodone/Acetaminophen (Percocet 5/325 Mg Tab) 2 tab PO Q4H PRN PRN Reason: Pain, severe (8-10) Stop: 05/11/18 13:56 Last Admin: 05/11/18 11:06 Dose: 2 tab Saccharomyces Boulardii (Florastor) 250 mg PO BID [facility] Last Admin: 05/11/18 10:01 Dose: 250 mg - Labs Labs: 05/11/18 07:00 05/11/18 07:00 PT 11.8 SECONDS (9.7-12.2) 05/07/18 11:37 INR 1.1 05/07/18 11:37 APTT 33 SECONDS (21-34) 05/07/18 11:37 - Constitutional Appears: Non-toxic, No Acute Distress - Head Exam Head Exam: ATRAUMATIC, NORMAL INSPECTION, NORMOCEPHALIC - Eye Exam Eye Exam: EOMI - ENT Exam ENT Exam: Mucous Membranes Moist - Neck Exam Neck Exam: Full ROM, Normal Inspection - Respiratory Exam Respiratory Exam: absent: Respiratory Distress - Cardiovascular Exam Cardiovascular Exam: +S1, +S2 - GI/Abdominal Exam GI & Abdominal Exam: Soft, Normal Bowel Sounds. absent: Tenderness - Extremities Exam Extremities Exam: absent: Full ROM, Normal Inspection - Back Exam Back Exam: NORMAL INSPECTION - Neurological Exam Neurological Exam: Alert, Awake, Oriented x3 - Psychiatric Exam Psychiatric exam: Normal Affect, Normal Mood - Skin Skin Exam: Dry, Intact, Normal Color, Warm Assessment and Plan - Assessment and Plan (Free Text) Assessment: This is a 43 yo male with left foot cellulitis, rule out osteomyelitis. L foot Cellulitis -ESR elevated but downtrending -wound culture of left foot growing proteus and staph aureus -MRI is suspicious for acute osteo -patient remains afebrile and without leukocytosis, borderline leukopenic -on IV merrem q 8 hrs -Dr. Jackson recommends IV abx x 6 weeks -blood cultures negative to date -possible discharge to subacute facility nearby as Dr. Hobbs recommends, to receive IV abx -PICC line placement pending; ordered for IR for the weekend. If not, f/u on Sunday -PT referral ordered; patient still unable to ambulate normally. Pain vs. gradual deconditioning. PT to work with patient and clear patient for discharge. Hx of Asthma -Albuterol q6h PRN -Maintain spO2 above 92%, O2 NC PRN DVT ppx: per podiatry, not recommended GI ppx: famotidine 20 mg PO daily discussed with Dr. Veloz <Chato Veloz - Last Filed: 05/11/18 19:06> Objective - Vital Signs/Intake and Output Vital Signs (last 24 hours): Temp Pulse Resp BP Pulse Ox 97.6 F 78 20 112/73 99 05/11/18 15:00 05/11/18 15:00 05/11/18 15:00 05/11/18 15:00 05/11/18 15:00 Intake and Output: 05/11/18 05/12/18 18:59 05:59 Intake Total 600 Balance 600 - Medications Medications: Current Medications Acetaminophen (Tylenol 325mg Tab) 650 mg PO Q6 PRN PRN Reason: Pain, Mild (1-3) Albuterol/Ipratropium (Duoneb 3 Mg/0.5 Mg (3 Ml) Ud) 3 ml INH RQ6 PRN PRN Reason: Cough Clotrimazole (Lotrimin 1%) 1 gm TOP BID [facility] Last Admin: 05/11/18 17:50 Dose: Not Given Famotidine (Pepcid) 20 mg PO BID [facility] Last Admin: 05/11/18 17:49 Dose: 20 mg Hydromorphone HCl (Dilaudid) 0.5 mg IVP Q10M PRN PRN Reason: Pain, moderate (4-7) Last Admin: 05/08/18 14:05 Dose: 0.5 mg Meropenem 1 gm/ Sodium (Chloride) 100 mls @ 100 mls/hr IVPB Q8H [facility]; Protocol Last Admin: 05/11/18 12:27 Dose: 100 mls/hr Saccharomyces Boulardii (Florastor) 250 mg PO BID [facility] Last Admin: 05/11/18 17:49 Dose: 250 mg - Labs Labs: 05/11/18 07:00 05/11/18 07:00 PT 11.8 SECONDS (9.7-12.2) 05/07/18 11:37 INR 1.1 05/07/18 11:37 APTT 33 SECONDS (21-34) 05/07/18 11:37 Attending/Attestation - Attestation I have personally seen and examined this patient.: Yes I have fully participated in the care of the patient.: Yes I have reviewed all pertinent clinical information, including history, physical exam and plan: Yes Notes (Text): Seen and examined by me no complain continue antibiotics picc line pending follow compressed gas tester d/.w resident
--- NOTE | 2018-05-11 14:27 | CP.PCM.PN ---
Subjective - Date & Time of Evaluation Date of Evaluation: 05/11/18 Time of Evaluation: 14:24 - Subjective Subjective: Podiatry Progress Note- Dr. Hobbs 43M patient 2 days s/p left foot incision and drainage of abscess with cellulilitis. Patient is seen resting comfortably in bed, in NAD, enjoying lunch and is AAO x 3. Patient denies any pain at the moment. Patient reports pain is managed by pain medication. Patient denies any further pedal complaints at this time. Denies any acute overnight events. Patient denies nausea, fever, shortness of breath, chest pains or chills. Objective - Vital Signs/Intake and Output Vital Signs (last 24 hours): Temp Pulse Resp BP Pulse Ox 97.6 F 78 20 127/84 96 05/11/18 08:17 05/11/18 08:17 05/11/18 08:17 05/11/18 08:17 05/11/18 08:17 Intake and Output: 05/11/18 05/11/18 06:59 18:59 Intake Total 850 Output Total 1000 Balance -150 - Medications Medications: Current Medications Acetaminophen (Tylenol 325mg Tab) 650 mg PO Q6 PRN PRN Reason: Pain, Mild (1-3) Albuterol/Ipratropium (Duoneb 3 Mg/0.5 Mg (3 Ml) Ud) 3 ml INH RQ6 PRN PRN Reason: Cough Clotrimazole (Lotrimin 1%) 1 gm TOP BID [facility] Last Admin: 05/11/18 10:08 Dose: 1 applic Famotidine (Pepcid) 20 mg PO BID [facility] Last Admin: 05/11/18 10:01 Dose: 20 mg Hydromorphone HCl (Dilaudid) 0.5 mg IVP Q10M PRN PRN Reason: Pain, moderate (4-7) Last Admin: 05/08/18 14:05 Dose: 0.5 mg Meropenem 1 gm/ Sodium (Chloride) 100 mls @ 100 mls/hr IVPB Q8H [facility]; Protocol Last Admin: 05/11/18 12:27 Dose: 100 mls/hr Oxycodone/Acetaminophen (Percocet 5/325 Mg Tab) 1 tab PO Q4H PRN PRN Reason: Pain, moderate (4-7) Stop: 05/11/18 14:59 Saccharomyces Boulardii (Florastor) 250 mg PO BID [facility] Last Admin: 05/11/18 10:01 Dose: 250 mg - Labs Labs: 05/11/18 07:00 05/11/18 07:00 PT 11.8 SECONDS (9.7-12.2) 05/07/18 11:37 INR 1.1 05/07/18 11:37 APTT 33 SECONDS (21-34) 05/07/18 11:37 - Constitutional Appears: Well, Non-toxic, No Acute Distress - Extremities Exam Additional comments: LLE focused exam: VASC: DP and PT 2/4 bilaterally, CFT < 3 seconds x 10 digits, temperature gradient warm to warm to LE, warmth to the left digit hair present ORTHO: moderate pain with palpation to the left lateral forefoot, MM is 5/5 in all four compartments: dorsiflexion, plantarflexion, inversion and eversion NEURO: gross and protective sensation intact DERM: Left foot: surgical incision measuring approximately 3 cm in length on the dorsum lateral aspect of the left foot remains opened, wound base is mixture of granular and fibrotic tissue. No clinical signs of infection appreciated at this time. Wound base is seen to be 100% granular Right foot: 3rd and 4th interspace maceration, no increase erythema or swelling to right foot - Neurological Exam Neurological Exam: Alert, Awake, Oriented x3 - Psychiatric Exam Psychiatric exam: Normal Affect, Normal Mood Assessment and Plan - Assessment and Plan (Free Text) Assessment: 43M patient 2 days s/p left foot incision and drainage of abscess with cellulilitis Plan: Patient seen and evaluated Plan discussed with Dr. Hobbs Absent leukocytosis Continue abx per ID ESR 21 from 45 Final wound cx from OR Staph Aureus No plan for further surgical intervention at this time Dr. Hobbs recommends subacute rehab facility for patient if possible Podiatry will continue to follow while patient in house
[2018-05-12] MEDS: Meropenem 1 GM in Sodium Chloride 0.9% 100 ML IVPB SCH ×3 (03:21→19:49)
[2018-05-12 08:03] LABS: BASO # 0.1 K/uL (0.0-0.2); BASO % 2.2 % (0.0-2.0); EOS # 0.2 K/uL (0.0-0.7); EOS % 5.8 % (0.0-4.0); HEMOGLOBIN 15.6 g/dL (12.0-18.0); LYMPH # 1.4 K/uL (1.0-4.3); LYMPH % 37.1 % (20.0-40.0); MEAN CELL VOLUME 92.5 fL (80.0-94.0); MEAN CORPUSCULAR HEMOGLOBIN 32.6 pg (27.0-31.0); MEAN CORPUSCULAR HGB CONC 35.3 g/dL (33.0-37.0); MEAN PLATELET VOLUME 8.1 fL (7.2-11.7); MONO # 0.4 K/uL (0.0-0.8); MONO % 11.1 % (0.0-10.0); NEUT # 1.7 K/uL (1.8-7.0); NEUT % 43.8 % (50.0-75.0); NRBC % 0.1 % (0.0-2.0); RBC 4.77 Mil/uL (4.40-5.90); RED CELL DISTRIBUTION WIDTH 12.8 % (11.5-14.5); WHITE BLOOD COUNT 3.9 K/uL (4.8-10.8)
[2018-05-12] MEDS: HYDROmorphone 0.5 mg/0.5 ml ISec IVP PRN (08:10)
[2018-05-12 08:29] LABS: ALT/SGPT 47 U/L (21-72); AST/SGOT 47 U/L (17-59); BLOOD UREA NITROGEN 15 mg/dL (9-20); CALCIUM 9.1 mg/dl (8.6-10.4); GFR NON-AFRICAN AMERICAN > 60
--- NOTE | 2018-05-12 08:57 | CP.PCM.PN ---
Subjective - Date & Time of Evaluation Date of Evaluation: 05/12/18 Time of Evaluation: 08:54 - Subjective Subjective: Podiatry Progress Note- Dr. Hobbs 43 y/o male patient 3 days s/p left foot incision and drainage of abscess with cellulilitis. Patient is seen resting comfortably in bed, in no acute distress, and is AAO x 3. Patient denies any pain at the moment. Patient reports pain is managed by pain medication. Patient denies any further pedal complaints at this time. Denies any acute overnight events. Patient denies nausea, fever, shortness of breath, chest pains or chills. Objective - Vital Signs/Intake and Output Vital Signs (last 24 hours): Temp Pulse Resp BP Pulse Ox 98.1 F 84 20 112/72 97 05/12/18 07:52 05/12/18 07:52 05/12/18 07:52 05/12/18 07:52 05/12/18 07:52 Intake and Output: 05/12/18 05/12/18 06:59 18:59 Intake Total Balance - Medications Medications: Current Medications Acetaminophen (Tylenol 325mg Tab) 650 mg PO Q6 PRN PRN Reason: Pain, Mild (1-3) Albuterol/Ipratropium (Duoneb 3 Mg/0.5 Mg (3 Ml) Ud) 3 ml INH RQ6 PRN PRN Reason: Cough Clotrimazole (Lotrimin 1%) 1 gm TOP BID [facility] Last Admin: 05/11/18 17:50 Dose: Not Given Famotidine (Pepcid) 20 mg PO BID [facility] Last Admin: 05/11/18 17:49 Dose: 20 mg Hydromorphone HCl (Dilaudid) 0.5 mg IVP Q10M PRN PRN Reason: Pain, moderate (4-7) Last Admin: 05/12/18 08:10 Dose: 0.5 mg Meropenem 1 gm/ Sodium (Chloride) 100 mls @ 100 mls/hr IVPB Q8H [facility]; Protocol Last Admin: 05/12/18 03:21 Dose: 100 mls/hr Saccharomyces Boulardii (Florastor) 250 mg PO BID [facility] Last Admin: 05/11/18 17:49 Dose: 250 mg - Labs Labs: 05/12/18 07:51 05/12/18 07:51 PT 11.8 SECONDS (9.7-12.2) 05/07/18 11:37 INR 1.1 05/07/18 11:37 APTT 33 SECONDS (21-34) 05/07/18 11:37 - Constitutional Appears: Well, Non-toxic, No Acute Distress - Extremities Exam Additional comments: VASC: DP and PT 2/4 bilaterally, CFT < 3 seconds x 10 digits, temperature gradient warm to warm to LE, warmth to the left digit hair present NEURO: gross and protective sensation intact DERM: Left foot: surgical incision measuring approximately 3 cm in length on the dorsum lateral aspect of the left foot remains opened, wound base is mixture of granular and fibrotic tissue. No clinical signs of infection appreciated at this time. Wound base is seen to be 100% granular Right foot: 3rd and 4th interspace maceration, no increase erythema or swelling to right foot ORTHO: moderate pain with palpation to the left lateral forefoot, MM is 5/5 in all four compartments: dorsiflexion, plantarflexion, inversion and eversion - Neurological Exam Neurological Exam: Alert, Awake, Oriented x3 - Psychiatric Exam Psychiatric exam: Normal Affect, Normal Mood Assessment and Plan - Assessment and Plan (Free Text) Assessment: 43 y/o male patient 3 days s/p left foot incision and drainage of abscess with cellulilitis Plan: Patient seen and evaluated Plan discussed with Dr. Hobbs Patient is Afebrile and Absent leukocytosis at this time Continue abx per ID ESR 21 from 45 Final wound cx from OR Staph Aureus No plan for further surgical intervention at this time Wound cleansed ith hydrogen peroxide and dressed with dry sterile dressing Patient tolerated the dressing change well Dr. Hobbs recommends subacute rehab facility for patient if possible Podiatry will continue to follow while patient in house
[2018-05-12] MEDS: Saccharomyces Boulardi 250 mg Cap PO SCH ×2 (09:53→18:19)
[2018-05-12] MEDS: Clotrimazole 1% Cream(30 gm) TOP SCH ×2 (09:55→18:20)
--- NOTE | 2018-05-12 18:15 | CP.PCM.PN ---
<Oni Ferreira - Last Filed: 05/12/18 18:15> Subjective - Date & Time of Evaluation Date of Evaluation: 05/12/18 Time of Evaluation: 18:15 - Subjective Subjective: Progress note. Attending: Dr. Rosas Pt seen and examined at bedside. No acute distress. No events overnight. No fevers, chills, vomiting, diarrhea. Objective - Vital Signs/Intake and Output Vital Signs (last 24 hours): Temp Pulse Resp BP Pulse Ox 98 F 89 20 112/73 98 05/12/18 16:04 05/12/18 16:04 05/12/18 16:04 05/12/18 16:04 05/12/18 16:04 Intake and Output: 05/12/18 05/12/18 06:59 18:59 Intake Total 600 Balance 600 - Medications Medications: Current Medications Acetaminophen (Tylenol 325mg Tab) 650 mg PO Q6 PRN PRN Reason: Pain, Mild (1-3) Clotrimazole (Lotrimin 1%) 1 gm TOP BID [facility] Last Admin: 05/12/18 09:55 Dose: Not Given Famotidine (Pepcid) 20 mg PO BID [facility] Last Admin: 05/12/18 09:53 Dose: 20 mg Meropenem 1 gm/ Sodium (Chloride) 100 mls @ 100 mls/hr IVPB Q8H [facility]; Protocol Last Admin: 05/12/18 11:04 Dose: 100 mls/hr Saccharomyces Boulardii (Florastor) 250 mg PO BID [facility] Last Admin: 05/12/18 09:53 Dose: 250 mg - Labs Labs: 05/12/18 07:51 05/12/18 07:51 PT 11.8 SECONDS (9.7-12.2) 05/07/18 11:37 INR 1.1 05/07/18 11:37 APTT 33 SECONDS (21-34) 05/07/18 11:37 - Constitutional Appears: Non-toxic, No Acute Distress - Head Exam Head Exam: ATRAUMATIC, NORMAL INSPECTION, NORMOCEPHALIC - Eye Exam Eye Exam: EOMI - ENT Exam ENT Exam: Mucous Membranes Moist - Neck Exam Neck Exam: Full ROM, Normal Inspection - Respiratory Exam Respiratory Exam: absent: Respiratory Distress - Cardiovascular Exam Cardiovascular Exam: REGULAR RHYTHM, +S1, +S2. absent: Murmur - GI/Abdominal Exam GI & Abdominal Exam: Soft, Normal Bowel Sounds. absent: Tenderness - Extremities Exam Extremities Exam: absent: Full ROM, Normal Inspection Additional comments: dressing clean dry intact - Neurological Exam Neurological Exam: Alert, Awake, Oriented x3 - Psychiatric Exam Psychiatric exam: Normal Affect, Normal Mood - Skin Skin Exam: Dry, Intact, Normal Color, Warm Assessment and Plan - Assessment and Plan (Free Text) Assessment: This is a 43 yo male with left foot cellulitis, rule out osteomyelitis. L foot Cellulitis -ESR elevated but downtrending -wound culture of left foot growing proteus and staph aureus -MRI is suspicious for acute osteo -patient remains afebrile and without leukocytosis, borderline leukopenic -on IV merrem q 8 hrs -Dr. Jackson recommends IV abx x 6 weeks -blood cultures negative to date -possible discharge to subacute facility nearby as Dr. Hobbs recommends, to receive IV abx -PICC line placement pending; ordered for IR for the . If not, f/u on Sunday -PT referral ordered; patient still unable to ambulate normally. Pain vs. gradual deconditioning. PT to work with patient and clear patient for discharge. Hx of Asthma -Albuterol q6h PRN -Maintain spO2 above 92%, O2 NC PRN DVT ppx: per podiatry, not recommended GI ppx: famotidine 20 mg PO daily discussed with Dr. Rosas. <Donny Rosas - Last Filed: 05/12/18 18:57> Objective - Vital Signs/Intake and Output Vital Signs (last 24 hours): Temp Pulse Resp BP Pulse Ox 98 F 89 20 112/73 98 05/12/18 16:04 05/12/18 16:04 05/12/18 16:04 05/12/18 16:04 05/12/18 16:04 Intake and Output: 05/12/18 05/12/18 06:59 18:59 Intake Total 600 Balance 600 - Medications Medications: Current Medications Acetaminophen (Tylenol 325mg Tab) 650 mg PO Q6 PRN PRN Reason: Pain, Mild (1-3) Clotrimazole (Lotrimin 1%) 1 gm TOP BID [facility] Last Admin: 05/12/18 18:20 Dose: Not Given Famotidine (Pepcid) 20 mg PO BID [facility] Last Admin: 05/12/18 18:19 Dose: 20 mg Meropenem 1 gm/ Sodium (Chloride) 100 mls @ 100 mls/hr IVPB Q8H [facility]; Protocol Last Admin: 05/12/18 11:04 Dose: 100 mls/hr Saccharomyces Boulardii (Florastor) 250 mg PO BID [facility] Last Admin: 05/12/18 18:19 Dose: 250 mg - Labs Labs: 05/12/18 07:51 05/12/18 07:51 PT 11.8 SECONDS (9.7-12.2) 05/07/18 11:37 INR 1.1 05/07/18 11:37 APTT 33 SECONDS (21-34) 05/07/18 11:37 Attending/Attestation - Attestation I have personally seen and examined this patient.: Yes I have fully participated in the care of the patient.: Yes I have reviewed all pertinent clinical information, including history, physical exam and plan: Yes Notes (Text): 05/12/18 18:53 Medical attending: Patient was seen and examined by me. Agree with the above note by the resident The patient was not in any acute distress when I saw the patient He appeared to be comfortable, he was able to move his toes The patient is pending a PICC line for prolonged IV abx. As mentioned previously the patient is S/P surgery and the wound culture has grown proteus and staph. MRI findings suggest there was osteomyltis as well. Donny Rosas 05/12/18 18:56
[2018-05-13] MEDS: Meropenem 1 GM in Sodium Chloride 0.9% 100 ML IVPB SCH ×3 (04:59→20:53)
[2018-05-13 07:43] LABS: BASO # 0.1 K/uL (0.0-0.2); BASO % 1.9 % (0.0-2.0); EOS # 0.2 K/uL (0.0-0.7); EOS % 5.7 % (0.0-4.0); LYMPH # 1.3 K/uL (1.0-4.3); LYMPH % 36.3 % (20.0-40.0); MEAN CORPUSCULAR HEMOGLOBIN 31.9 pg (27.0-31.0); MEAN CORPUSCULAR HGB CONC 34.3 g/dL (33.0-37.0); MEAN PLATELET VOLUME 7.9 fL (7.2-11.7); MONO # 0.5 K/uL (0.0-0.8); MONO % 12.7 % (0.0-10.0); NEUT # 1.6 K/uL (1.8-7.0); NEUT % 43.4 % (50.0-75.0); NRBC % 0.1 % (0.0-2.0); RBC 4.72 Mil/uL (4.40-5.90); RED CELL DISTRIBUTION WIDTH 12.7 % (11.5-14.5); WHITE BLOOD COUNT 3.7 K/uL (4.8-10.8)
[2018-05-13 08:26] LABS: ALB/GLOB RATIO 0.9 (1.0-2.1); ALBUMIN 3.9 g/dL (3.5-5.0); ALT/SGPT 48 U/L (21-72); AST/SGOT 51 U/L (17-59); BLOOD UREA NITROGEN 17 mg/dL (9-20); CALCIUM 8.8 mg/dl (8.6-10.4); GFR NON-AFRICAN AMERICAN > 60
[2018-05-13] MEDS: Saccharomyces Boulardi 250 mg Cap PO SCH ×2 (09:30→17:57)
[2018-05-13] MEDS: Clotrimazole 1% Cream(30 gm) TOP SCH ×2 (09:33→17:58)
--- NOTE | 2018-05-13 14:29 | RAD ---
HISTORY: verify right PICC COMPARISON: No prior study available for comparison. TECHNIQUE: Chest, one view. FINDINGS: Right-sided PICC extends expected location of the cavoatrial junction. LUNGS: Superior most lung apices excluded from view. No focal consolidation. Please note that chest x-ray has limited sensitivity for the detection of pulmonary masses. PLEURA: No significant pleural effusion identified. No definite pneumothorax . CARDIOVASCULAR: The cardiomediastinal silhouette appears within normal limits of size. No significant atherosclerotic calcification present. OSSEOUS STRUCTURES: No acute osseous abnormality identified. VISUALIZED UPPER ABDOMEN: Unremarkable. OTHER FINDINGS: None. IMPRESSION: Right-sided PICC extends to the expected location of the cavoatrial junction.
--- NOTE | 2018-05-13 16:53 | CP.PCM.PN ---
Subjective - Date & Time of Evaluation Date of Evaluation: 05/13/18 Time of Evaluation: 16:48 - Subjective Subjective: Patient seen and examined this morning. He is concerned about staying in the hospital longer due to costs. He wants to go home. Patient denies chest pain, SOB, nausea, vomiting, diarrhea. Left foot still hurts with ambulation but less than before. Objective - Vital Signs/Intake and Output Vital Signs (last 24 hours): Temp Pulse Resp BP Pulse Ox 98 F 80 20 120/74 98 05/13/18 16:00 05/13/18 16:00 05/13/18 16:00 05/13/18 16:00 05/13/18 16:00 Intake and Output: 05/13/18 05/13/18 06:59 18:59 Intake Total 900 Balance 900 - Medications Medications: Current Medications Acetaminophen (Tylenol 325mg Tab) 650 mg PO Q6 PRN PRN Reason: Pain, Mild (1-3) Last Admin: 05/13/18 15:08 Dose: 650 mg Clotrimazole (Lotrimin 1%) 1 gm TOP BID [facility] Last Admin: 05/13/18 09:33 Dose: Not Given Famotidine (Pepcid) 20 mg PO BID [facility] Last Admin: 05/13/18 09:30 Dose: 20 mg Meropenem 1 gm/ Sodium (Chloride) 100 mls @ 100 mls/hr IVPB Q8H [facility]; Protocol Last Admin: 05/13/18 13:00 Dose: 100 mls/hr Saccharomyces Boulardii (Florastor) 250 mg PO BID [facility] Last Admin: 05/13/18 09:30 Dose: 250 mg - Labs Labs: 05/13/18 07:29 05/13/18 07:29 PT 11.8 SECONDS (9.7-12.2) 05/07/18 11:37 INR 1.1 05/07/18 11:37 APTT 33 SECONDS (21-34) 05/07/18 11:37 - Constitutional Appears: Well - Head Exam Head Exam: ATRAUMATIC, NORMAL INSPECTION - Eye Exam Eye Exam: EOMI, Normal appearance - Neck Exam Neck Exam: Normal Inspection - Respiratory Exam Respiratory Exam: Clear to Ausculation Bilateral, NORMAL BREATHING PATTERN - Cardiovascular Exam Cardiovascular Exam: REGULAR RHYTHM, +S1, +S2 - GI/Abdominal Exam GI & Abdominal Exam: Soft, Normal Bowel Sounds. absent: Firm, Guarding, Rigid, Tenderness - Extremities Exam Additional comments: left foot wrapped in bandage and with black velcro open toe shoe on - Neurological Exam Neurological Exam: Alert, Awake, Oriented x3 - Skin Skin Exam: Dry, Intact, Normal Color, Warm Assessment and Plan - Assessment and Plan (Free Text) Assessment: 43 y/o male with PMHx of asthma here for Left foot cellulitis with probably osteomyelitis. Stable on medicine floor. L foot Cellulitis -s/p PICC 05/13 -wound culture of left foot growing proteus and staph aureus. MRI is suspicious for acute osteo. Patient remains afebrile and without leukocytosis -on IV merrem q 8 hrs since 05/09 -Dr. Jackson recommends IV abx x 6 weeks. Spoke to case management about abx in subacute facility, however, his insurance is better off with IV abx once a day. Possible with ertapenem per Dr. Jackson but will f/u -blood cultures negative to date -continue with PT> Pain vs. gradual deconditioning. PT to work with patient and clear patient for discharge. Hx of Asthma -Albuterol q6h PRN -Maintain spO2 above 92%, O2 NC PRN DVT ppx: per podiatry, not recommended GI ppx: famotidine 20 mg PO daily dispo: pending case management IV abx situation explained above, and subacute facility placement case d/w Dr. Magdiel Walker PGY1
--- NOTE | 2018-05-13 22:30 | CP.PCM.PN ---
Subjective - Date & Time of Evaluation Date of Evaluation: 05/13/18 Time of Evaluation: 10:00 - Subjective Subjective: Podiatry Progress Note- Dr. Hobbs 43 y/o male patient 4 days s/p left foot incision and drainage of abscess with cellulilitis. Patient is seen resting comfortably in bed, in no acute distress, and is AAO x 3. Patient express concerns of staying in the hospital. Wants to know when he can go home. Patient reports little pain, pain worse with dressing change. Well managed with pain medication. Reports able to ambulate. Patient de nies nausea, fever, shortness of breath, chest pains or chills. Objective - Vital Signs/Intake and Output Vital Signs (last 24 hours): Temp Pulse Resp BP Pulse Ox 98 F 80 20 120/74 98 05/13/18 16:00 05/13/18 16:00 05/13/18 16:00 05/13/18 16:00 05/13/18 16:00 Intake and Output: 05/13/18 05/14/18 18:59 06:59 Intake Total 900 580 Balance 900 580 - Medications Medications: Current Medications Acetaminophen (Tylenol 325mg Tab) 650 mg PO Q6 PRN PRN Reason: Pain, Mild (1-3) Last Admin: 05/13/18 15:08 Dose: 650 mg Clotrimazole (Lotrimin 1%) 1 gm TOP BID [facility] Last Admin: 05/13/18 17:58 Dose: Not Given Famotidine (Pepcid) 20 mg PO BID [facility] Last Admin: 05/13/18 17:57 Dose: 20 mg Meropenem 1 gm/ Sodium (Chloride) 100 mls @ 100 mls/hr IVPB Q8H [facility]; Protocol Last Admin: 05/13/18 20:53 Dose: 100 mls/hr Saccharomyces Boulardii (Florastor) 250 mg PO BID [facility] Last Admin: 05/13/18 17:57 Dose: 250 mg - Labs Labs: 05/13/18 07:29 05/13/18 07:29 PT 11.8 SECONDS (9.7-12.2) 05/07/18 11:37 INR 1.1 05/07/18 11:37 APTT 33 SECONDS (21-34) 05/07/18 11:37 - Constitutional Appears: Well, Non-toxic, No Acute Distress - Extremities Exam Extremities Exam: absent: Calf Tenderness Additional comments: VASC: DP and PT 2/4 bilaterally, CFT < 3 seconds x 10 digits, temperature grad ient warm to warm to LE, warmth to the left digit hair present NEURO: gross and protective sensation intact DERM: Left foot: surgical incision measuring approximately 3 cm in length on the dorsum lateral aspect of the left foot remains opened, wound base is mainly granular tissue. No clinical signs of infection appreciated at this time. Right foot: 3rd and 4th interspace maceration, no increase erythema or swelling to right foot ORTHO: moderate pain with palpation to the left lateral forefoot, MM is 5/5 in all four compartments: dorsiflexion, plantarflexion, inversion and eversion - Neurological Exam Neurological Exam: Alert, Awake, Oriented x3 - Psychiatric Exam Psychiatric exam: Normal Affect, Normal Mood Assessment and Plan - Assessment and Plan (Free Text) Assessment: 43 y/o male patient 4 days s/p left foot incision and drainage of abscess with cellulilitis Plan: Patient seen and evaluated Plan discussed with Dr. Hobbs Chart, labs, vitals reviewed Patient is Afebrile and Absent leukocytosis at this time ESR 45 -->21 --> 32 CRP 13.60 Final wound cx from OR Staph Aureus No plan for further surgical intervention at this time Wound cleansed with copious hydrogen peroxide and dressed with hydrogen peroxide wet to dry sterile dressing Patient tolerated the dressing change well Dr. Hobbs recommends subacute rehab facility for patient if possible Abx per ID recommendations Podiatry will continue to follow while patient in house Patient is stable per podiatry for discharge. Patient to follow up with Dr. Hobbs as outpatient Please call for an appointment within 1 week . Keep dressing clean, dry and intact. Do not get wet If shower, please bag over entire foot. Do not change dressing until seen by Dr. Hobbs in office WBAT in surgical shoe Will continue to follow patient while in house
[2018-05-14] MEDS: Meropenem 1 GM in Sodium Chloride 0.9% 100 ML IVPB SCH ×2 (03:59→12:41)
[2018-05-14 07:38] LABS: BASO # 0.1 K/uL (0.0-0.2); BASO % 1.4 % (0.0-2.0); EOS # 0.2 K/uL (0.0-0.7); EOS % 6.1 % (0.0-4.0); HEMOGLOBIN 14.6 g/dL (12.0-18.0); LYMPH # 1.5 K/uL (1.0-4.3); LYMPH % 37.9 % (20.0-40.0); MEAN CELL VOLUME 93.3 fL (80.0-94.0); MEAN CORPUSCULAR HEMOGLOBIN 31.8 pg (27.0-31.0); MEAN CORPUSCULAR HGB CONC 34.1 g/dL (33.0-37.0); MEAN PLATELET VOLUME 8.1 fL (7.2-11.7); MONO # 0.4 K/uL (0.0-0.8); MONO % 11.2 % (0.0-10.0); NEUT # 1.7 K/uL (1.8-7.0); NEUT % 43.4 % (50.0-75.0); NRBC % 0.1 % (0.0-2.0); RBC 4.6 Mil/uL (4.40-5.90); RED CELL DISTRIBUTION WIDTH 12.5 % (11.5-14.5); WHITE BLOOD COUNT 3.8 K/uL (4.8-10.8)
[2018-05-14 08:17] VITALS: PULSE 77
[2018-05-14 10:04] LABS: ALBUMIN 3.7 g/dL (3.5-5.0); ALT/SGPT 90 U/L (21-72); AST/SGOT 109 U/L (17-59); BLOOD UREA NITROGEN 15 mg/dL (9-20); CALCIUM 8.8 mg/dl (8.6-10.4); GFR NON-AFRICAN AMERICAN > 60
[2018-05-14] MEDS: Saccharomyces Boulardi 250 mg Cap PO SCH ×2 (10:04→17:29)
[2018-05-14] MEDS: Clotrimazole 1% Cream(30 gm) TOP SCH ×2 (10:04→17:31)
--- NOTE | 2018-05-14 12:30 | CP.PCM.PN ---
Subjective - Date & Time of Evaluation Date of Evaluation: 05/14/18 Time of Evaluation: 08:00 - Subjective Subjective: arrangements made for out pt rx Objective - Vital Signs/Intake and Output Vital Signs (last 24 hours): Temp Pulse Resp BP Pulse Ox 98.1 F 77 20 105/67 100 05/14/18 08:16 05/14/18 08:16 05/14/18 08:16 05/14/18 08:16 05/14/18 08:16 Intake and Output: 05/14/18 05/14/18 06:59 18:59 Intake Total 1160 Balance 1160 - Medications Medications: Current Medications Acetaminophen (Tylenol 325mg Tab) 650 mg PO Q6 PRN PRN Reason: Pain, Mild (1-3) Last Admin: 05/13/18 15:08 Dose: 650 mg Clotrimazole (Lotrimin 1%) 1 gm TOP BID [facility] Last Admin: 05/14/18 10:04 Dose: 1 applic Famotidine (Pepcid) 20 mg PO BID [facility] Last Admin: 05/13/18 17:57 Dose: 20 mg Meropenem 1 gm/ Sodium (Chloride) 100 mls @ 100 mls/hr IVPB Q8H [facility]; Protocol Last Admin: 05/14/18 03:59 Dose: 100 mls/hr Saccharomyces Boulardii (Florastor) 250 mg PO BID [facility] Last Admin: 05/14/18 10:04 Dose: 250 mg - Labs Labs: 05/14/18 07:10 05/14/18 08:03 PT 11.8 SECONDS (9.7-12.2) 05/07/18 11:37 INR 1.1 05/07/18 11:37 APTT 33 SECONDS (21-34) 05/07/18 11:37 Assessment and Plan (1) Osteomyelitis of left foot Status: Acute (2) Cellulitis of left foot Status: Acute (3) Non-healing ulcer of foot Status: Acute
--- NOTE | 2018-05-14 14:05 | CP.PCM.DIS ---
Provider - Provider Date of Admission: 05/09/18 14:46 Attending physician: Chato Veloz MD Consults: Dr. Hobbs (podiatry) Dr. Jackson (infectious disease) Time Spent in preparation of Discharge (in minutes): 45 Hospital Course - Lab Results Lab Results: Micro Results 05/07/18 12:02 Blood Blood Culture - Final NO GROWTH AFTER 5 DAYS 05/07/18 11:33 Blood Blood Culture - Final NO GROWTH AFTER 5 DAYS 05/07/18 11:33 Blood Gram Stain - Final TEST NOT PERFORMED 05/08/18 14:14 Abscess - Foot-Left Gram Stain - Final 05/08/18 14:14 Abscess - Foot-Left Wound Culture - Final Staphylococcus Aureus 05/07/18 12:02 Foot - Left Gram Stain - Final 05/07/18 12:02 Foot - Left Wound Culture - Final Proteus Mirabilis Staphylococcus Aureus Most Recent Lab Values WBC 3.8 K/uL (4.8-10.8) L 05/14/18 07:10 RBC 4.60 Mil/uL (4.40-5.90) 05/14/18 07:10 Hgb 14.6 g/dL (12.0-18.0) 05/14/18 07:10 Hct 42.9 % (35.0-51.0) 05/14/18 07:10 MCV 93.3 fL (80.0-94.0) 05/14/18 07:10 MCH 31.8 pg (27.0-31.0) H 05/14/18 07:10 MCHC 34.1 g/dL (33.0-37.0) 05/14/18 07:10 RDW 12.5 % (11.5-14.5) 05/14/18 07:10 Plt Count 210 K/uL (130-400) 05/14/18 07:10 MPV 8.1 fL (7.2-11.7) 05/14/18 07:10 Neut % (Auto) 43.4 % (50.0-75.0) L 05/14/18 07:10 Lymph % (Auto) 37.9 % (20.0-40.0) 05/14/18 07:10 [place] % (Auto) 11.2 % (0.0-10.0) H 05/14/18 07:10 Eos % (Auto) 6.1 % (0.0-4.0) H 05/14/18 07:10 Baso % (Auto) 1.4 % (0.0-2.0) 05/14/18 07:10 Neut # (Auto) 1.7 K/uL (1.8-7.0) L 05/14/18 07:10 Lymph # (Auto) 1.5 K/uL (1.0-4.3) 05/14/18 07:10 [place] # (Auto) 0.4 K/uL (0.0-0.8) 05/14/18 07:10 Eos # (Auto) 0.2 K/uL (0.0-0.7) 05/14/18 07:10 Baso # (Auto) 0.1 K/uL (0.0-0.2) 05/14/18 07:10 ESR 40 mm/hr (0-15) H 05/14/18 07:10 PT 11.8 SECONDS (9.7-12.2) 05/07/18 11:37 INR 1.1 05/07/18 11:37 APTT 33 SECONDS (21-34) 05/07/18 11:37 Sodium 138 mmol/L (132-148) 05/14/18 08:03 Potassium 4.2 mmol/L (3.6-5.2) 05/14/18 08:03 Chloride 102 mmol/L (98-107) 05/14/18 08:03 Carbon Dioxide 26 mmol/L (22-30) 05/14/18 08:03 Anion Gap 14 (10-20) 05/14/18 08:03 BUN 15 mg/dL (9-20) 05/14/18 08:03 Creatinine 0.8 mg/dL (0.8-1.5) 05/14/18 08:03 Est GFR ( Amer) > 60 05/14/18 08:03 Est GFR (Non-Af Amer) > 60 05/14/18 08:03 Random Glucose 71 mg/dL (75-110) L 05/14/18 08:03 Calcium 8.8 mg/dl (8.6-10.4) 05/14/18 08:03 Phosphorus 2.9 mg/dL (2.5-4.5) 05/08/18 18:09 Magnesium 2.3 mg/dL (1.6-2.3) 05/08/18 18:09 Total Bilirubin 0.4 mg/dL (0.2-1.3) 05/14/18 08:03 AST 109 U/L (17-59) H D 05/14/18 08:03 ALT 90 U/L (21-72) H D 05/14/18 08:03 Alkaline Phosphatase 81 U/L (38-126) 05/14/18 08:03 C-Reactive Protein 6.00 mg/L (0.0-9.9) 05/14/18 08:03 Total Protein 7.5 g/dL (6.3-8.3) 05/14/18 08:03 Albumin 3.7 g/dL (3.5-5.0) 05/14/18 08:03 Globulin 3.8 gm/dL (2.2-3.9) 05/14/18 08:03 Albumin/Globulin Ratio 1.0 (1.0-2.1) 05/14/18 08:03 Urine Color Straw (YELLOW) 05/07/18 13:26 Urine Clarity Clear (Clear) 05/07/18 13:26 Urine pH 7.0 (5.0-8.0) 05/07/18 13:26 Ur Specific Warner 1.006 (1.003-1.030) 05/07/18 13:26 Urine Protein Negative mg/dL (NEGATIVE) 05/07/18 13:26 Urine Glucose (UA) Normal mg/dL (Normal) 05/07/18 13:26 Urine Ketones Negative mg/dL (NEGATIVE) 05/07/18 13:26 Urine Blood Negative (NEGATIVE) 05/07/18 13:26 Urine Nitrate Negative (NEGATIVE) 05/07/18 13:26 Urine Bilirubin Negative (NEGATIVE) 05/07/18 13:26 Urine Urobilinogen Normal mg/dL (0.2-1.0) 05/07/18 13:26 Ur Leukocyte Esterase Neg Jozef/uL (Negative) 05/07/18 13:26 Urine WBC (Auto) < 1 /hpf (0-5) 05/07/18 13:26 Urine RBC (Auto) 1 /hpf (0-3) 05/07/18 13:26 - Hospital Course Hospital Course: On admission: 43M with PMH of asthma seen and evaluated in the ED for worsening left foot swelling and pain. Patient reports that he had the increase swelling for over 1 week now. Denies any trauma. Patient reports that he would get itchiness in the bilateral feet often. He reports scratching his feet and making an abrasion 5 days ago. Reports pain to the left foot. Reports can not put weight on the floor because of the pain. Patient denies nausea, fever, shortness of breath, chest pains. 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 He was given a cream and an antibiotic but is unaware what kind. Hospital summary: 43 y/o male with asthma was admitted for left foot cellulitis. MRI of the foot was suspicious for cellulitis. Patient had foot debridement done by podiatry and then treated for IV antibiotics daily ever since. Infectious disease physician was consulted. Discharge instructions: follow up labs for liver function outpatient 3-4 days after discharge swiv laboratpercy geo fonksyon fwa geo pasyan an pandan 3-4 christine apre yo fin egzeyat. Patient will be coming for daily outpatient IV antibiotic infusion for 5 weeks. CBC, CMP, CRP, ESR weekly. Follow with podiatry (Dr. Hobbs). Weight bearing of left foot as tolerated. If foot pain worsens or you develop fever or chills, please visit the emergency room. Pasyan an ap karolina geo enfeksyon antibyotik chak christine geo pasyan ekstn pandan 5 semn. CBC, CMP, CRP, ESR chak semn. Swiv mt podiatry (Dr Hobbs). Pote carlos [facility] [place]. Si doul sami anderson wojciech pi jeremias oswa ou devlope naheed goncalves. - Date & Time of H&P Date of H&P: 05/14/18 Time of H&P: 14:19 Discharge Exam - Head Exam Head Exam: ATRAUMATIC, NORMAL INSPECTION - Eye Exam Eye Exam: EOMI, Normal appearance - Respiratory Exam Respiratory Exam: Clear to PA & Lateral, NORMAL BREATHING PATTERN, UNREMARKABLE - GI/Abdominal Exam GI & Abdominal Exam: Normal Bowel Sounds, Unremarkable - Rectal Exam Rectal Exam: NORMAL INSPECTION - Extremities Exam Additional comments: peripheral pulses strong, no peripheral edema left foot wrapped with bandage and open toed shoe - Neurological Exam Neurological exam: Alert, Oriented x3 - Psychiatric Exam Psychiatric exam: Normal Affect, Normal Mood - Skin Skin Exam: Dry, Intact, Normal Color, Warm Discharge Plan - Discharge Medications Prescriptions: Ertapenem Sodium [Invanz] 1 gm IV DAILY 35 Days vial.port Saccharomyces Boulardi [Florastor] 250 mg PO BID #60 cap - Follow Up Plan Condition: STABLE Disposition: HOME/ ROUTINE Instructions: Cellulitis (Skin Infection), Adult (DC) Additional Instructions: follow up labs for liver function outpatient 3-4 days after discharge swiv laboratwa geo fonksyon fwa geo pasyan an pandan 3-4 christine apre yo fin egzeyat. Patient will be coming for daily outpatient IV antibiotic infusion for 5 weeks. CBC, CMP, CRP, ESR weekly. Follow with podiatry (Dr. Hobbs). Weight bearing of left foot as tolerated. If foot pain worsens or you develop fever or chills, please visit the emergency room. Pasyan an ap karolina geo enfeksyon antibyotik chak christine geo pasyan ekstn pandan 5 semn. CBC, CMP, CRP, ESR chak semn. Swiv ak podiatry (Dr Hobbs). Pote rochellee sami [facility] [place]. Si doul sami monica wojciech pi mal oswa ou devlope lafyv olga butler, drei katarzyna [place]. Referrals: Wild Sosa MD [Staff Provider] -
[2018-05-14 17:15] VITALS: BP 107/64; TEMP 98.5; O2SAT 97
--- NOTE | 2018-05-14 18:21 | CP.PCM.PN ---
Subjective - Date & Time of Evaluation Date of Evaluation: 05/14/18 Time of Evaluation: 14:00 - Subjective Subjective: Podiatry Progress Note- Dr. Hobbs 43 y/o male patient 6 days s/p left foot incision and drainage of abscess with cellulilitis. Patient is seen resting comfortably in bed, in no acute distress, and is AAO x 3. Patient reports that he is doing well. Reports some pain with walking in surgical shoe. Reports pain increases with dressing changes. Reports that he is going home today. Patient denies nausea, fever, shortness of breath, chest pains or chills. Objective - Vital Signs/Intake and Output Vital Signs (last 24 hours): Temp Pulse Resp BP Pulse Ox 98.5 F 77 20 107/64 97 05/14/18 16:00 05/14/18 16:00 05/14/18 16:00 05/14/18 16:00 05/14/18 16:00 Intake and Output: 05/14/18 05/14/18 06:59 18:59 Intake Total 1160 Balance 1160 - Medications Medications: Current Medications Acetaminophen (Tylenol 325mg Tab) 650 mg PO Q6 PRN PRN Reason: Pain, Mild (1-3) Last Admin: 05/13/18 15:08 Dose: 650 mg Clotrimazole (Lotrimin 1%) 1 gm TOP BID [facility] Last Admin: 05/14/18 17:31 Dose: 1 applic Famotidine (Pepcid) 20 mg PO BID [facility] Last Admin: 05/14/18 17:30 Dose: 20 mg Meropenem 1 gm/ Sodium (Chloride) 100 mls @ 100 mls/hr IVPB Q8H [facility]; Protocol Last Admin: 05/14/18 12:41 Dose: 100 mls/hr Saccharomyces Boulardii (Florastor) 250 mg PO BID [facility] Last Admin: 05/14/18 17:29 Dose: 250 mg - Labs Labs: 05/14/18 07:10 05/14/18 08:03 PT 11.8 SECONDS (9.7-12.2) 05/07/18 11:37 INR 1.1 05/07/18 11:37 APTT 33 SECONDS (21-34) 05/07/18 11:37 - Constitutional Appears: Well, Non-toxic, No Acute Distress - Extremities Exam Extremities Exam: absent: Calf Tenderness Additional comments: VASC: DP and PT 2/4 bilaterally, CFT < 3 seconds x 10 digits, temperature gradient warm to warm to LE, warmth to the left digit hair present NEURO: gross and protective sensation intact DERM: Left foot: surgical incision measuring approximately 2.5 cm in length on the dorsum lateral aspect of the left foot remains opened, wound base is mainly granular tissue, healing well. Depth is decreasing, wound is filling in. No erythema. No clinical signs of infection appreciated at this time. Right foot: 3rd and 4th interspace maceration, decreasing, no increase erythema or swelling to right foot, no clinical signs of infection ORTHO: moderate pain with palpation to the left lateral forefoot, MM is 5/5 in all four compartments: dorsiflexion, plantarflexion, inversion and eversion - Neurological Exam Neurological Exam: Alert, Awake, Oriented x3 - Psychiatric Exam Psychiatric exam: Normal Affect, Normal Mood Assessment and Plan - Assessment and Plan (Free Text) Assessment: 43 y/o male patient 6 days s/p left foot incision and drainage of abscess with cellulilitis- improved cellulitis, surgical site is healing well Plan: Patient seen and evaluated Plan discussed with Dr. Hobbs Chart, labs, vitals reviewed Patient is Afebrile and Absent leukocytosis at this time ESR 45 -->21 --> 32 -->40 CRP 13.60 -->13.6 Final wound cx from OR Staph Aureus No plan for further surgical intervention at this time Wound cleansed with copious hydrogen peroxide and dressed with hydrogen peroxide wet to dry sterile dressing Patient tolerated the dressing change well Dr. Hobbs recommends subacute rehab facility for patient if possible Abx per ID recommendations Podiatry will continue to follow while patient in house Patient is stable per podiatry for discharge. Patient to follow up with Dr. Hobbs as outpatient Please call for an appointment within 1 week . Keep dressing clean, dry and intact. Do not get wet If shower, please bag over entire foot. Do not change dressing until seen by Dr. Hobbs in office WBAT in surgical shoe Will continue to follow patient while in house
== END 2018-05-14 18:25 | disposition home or self-care (01) | DRG 464 ==
LOC: C.ER 10:22 → C.3T 15:36 → OBSVTOIN 05-09 14:46
PROVIDERS: ADMIT Internal Medicine; ATTEND Internal Medicine
PROC: 0J9R0ZZ Drainage of Left Foot Subcutaneous Tissue and Fascia, Open Approach (ICD-10-PCS; 2018-05-08)
PROC: 0JBR0ZZ Excision of Left Foot Subcutaneous Tissue and Fascia, Open Approach (ICD-10-PCS; principal; 2018-05-08 12:30)
PROC: 02HV33Z Insertion of Infusion Device into Superior Vena Cava, Percutaneous Approach (ICD-10-PCS; 2018-05-13)
DX: M86.172 Other acute osteomyelitis, left ankle and foot (principal); L02.612 Cutaneous abscess of left foot; L03.116 Cellulitis of left lower limb; L97.529 Non-pressure chronic ulcer of other part of left foot with unspecified severity; J45.909 Unspecified asthma, uncomplicated; B95.61 Methicillin susceptible Staphylococcus aureus infection as the cause of diseases classified elsewhere

== ENCOUNTER 2018-06-12 07:01 | Emergency (ER) | payer OTHER ==
[2018-06-12 07:01] VITALS: BMI 26.9
--- NOTE | 2018-06-12 07:53 | C.PDOC ---
History Of Present Illness 43 y/o male , w/PMhx of osteomyelitis, presents to the ER for PICC Line removal. Patient states that he finished his course of antibiotics. Patient denies having fever, chills, and other complaints at this time. Time Seen by Provider: 06/12/18 07:22 Chief Complaint (Nursing): Vascular Access Device Problem History Per: Patient History/Exam Limitations: no limitations Past Medical History Reviewed: Historical Data, Nursing Documentation, Vital Signs Vital Signs: Last Vital Signs Temp 98.3 F 06/12/18 07:08 Pulse 79 06/12/18 07:08 Resp 18 06/12/18 07:08 BP 109/67 06/12/18 07:08 Pulse Ox 98 06/12/18 07:08 - Medical History PMH: Asthma Other Surgeries: Hx of surgeries - [facility] Procedures DRAINAGE OF L FOOT SUBCU/FASCIA, OPEN APPROACH (05/09/18) EXCISION OF L FOOT SUBCU/FASCIA, OPEN APPROACH (05/09/18) INSERTION OF INFUSION DEV INTO SUP VENA CAVA, PERC APPROACH (05/09/18) Family History: States: No Known Family Hx - Social History Hx Alcohol Use: No (social drinker) Hx Substance Use: No - Immunization History Hx Tetanus Toxoid Vaccination: No Hx Influenza Vaccination: No Hx Pneumococcal Vaccination: No Review Of Systems Except As Marked, All Systems Reviewed And Found Negative. Constitutional: Negative for: Fever, Chills Musculoskeletal: Negative for: Foot Pain Physical Exam - Physical Exam Appears: Non-toxic, No Acute Distress Skin: Normal Color, Warm, Dry Eye(s): bilateral: Normal Inspection Neck: Supple Cardiovascular: Rhythm Regular Respiratory: Normal Breath Sounds, No Rales, No Rhonchi, No Wheezing Extremity: Normal ROM, Other (PICC line sleeve to right arm) Neurological/Psych: Oriented x3, Normal Speech ED Course And Treatment O2 Sat by Pulse Oximetry: 98 (RA) Pulse Ox Interpretation: Normal Progress Note: PICC line removed by PICC nurse Reassessment Condition: Unchanged Medical Decision Making Medical Decision Making: Plan: --PICC Line Removal Disposition Counseled Patient/Family Regarding: Need For Followup - Disposition Referrals: Mahad Carl DPM [Doctor Podiatric [facility]] - Disposition: HOME/ ROUTINE Disposition Time: 09:50 Condition: STABLE Additional Instructions: Follow up with your PMD for further evaluation Instructions: Peripherally-Inserted Central Catheter Removal Forms: [employer] ([place]uan) - POA Present On Arrival: None - Clinical Impression Clinical Impression: Vascular cannula removal - PA / TRAINING INSTRUCTOR / Resident Statement MD/DO has reviewed & agrees with the documentation as recorded. - Scribe Statement The provider has reviewed the documentation as recorded by the Scribe Holly Leary Provider Attestation All medical record entries made by the Scribe were at my direction and personally dictated by me. I have reviewed the chart and agree that the record accurately reflects my personal performance of the history, physical exam, medical decision making, and the department course for this patient. I have also personally directed, reviewed, and agree with the discharge instructions and disposition.
[2018-06-12 09:47] VITALS: BP 112/74; PULSE 63; RESP 20; TEMP 97.5
[2018-06-12 10:27] VITALS: O2SAT 98
== END 2018-06-12 10:05 | disposition home or self-care (01) ==
LOC: C.ER 07:01
DX: Z45.2 Encounter for adjustment and management of vascular access device (principal)